=== PATIENT | female | born 1950 | race Caucasian/White ===

== ENCOUNTER 2019-12-01 09:26 | Outpatient (CLI) | payer MEDICARE, OTHER, SELFPAY ==
[2019-12-01 10:33] LABS: Add Urine Microscopic? YES; Alanine Aminotransferase 22 U/L (4-35); Albumin Level 4.3 g/dL (3.5-5.1); Alkaline Phosphatase 69 U/L (38-126); Appearance Urine Clear (Clear); Aspartate Amino Transferase 31 U/L (14-36); Bacteria Urine Trace /hpf; Bilirubin Urine Negative (Negative); Bilirubin,Total 0.8 mg/dL (0.2-1.3); Blood Urea Nitrogen 22 mg/dL (7-17); Blood Urine Negative (Negative); Calcium 9.2 mg/dL (8.4-10.2); Carbon Dioxide 28 mmol/L (22-30); Chloride 102 mmol/L (98-107); Cholesterol 128 mg/dL (0-200); Color Urine Yellow (Yellow); Estimated Glomerular Filt Rate > 60; Glucose 117 mg/dL (65-105); Glucose Urine UA Negative (Negative); HDL Direct 40 mg/dL; Ketones Urine Negative (Negative); Leukocyte Esterase Ur 1+ LEU/UL (NEGATIVE); Mucus Urine Rare /lpf; Nitrate Urine Negative (Negative); Potassium 4.3 mmol/L (3.4-5.0); Protein Urine Negative (Negative); RBC Urine 0-2 /hpf (0-2); Sodium 138 mmol/L (137-145); Specific Grav Ur 1.016 (1.001-1.035); Squamous Epithelial Cell Urine Occasional /hpf (Few); Triglycerides 139 mg/dL (<150); Urobilinogen Urine Negative mg/dL (<2.0); WBC Urine 0-3 /hpf (0-3)
[2019-12-01 10:35] LABS: Hemoglobin A1C 5.8 % (<5.7)
[2019-12-01 10:44] LABS: LDL Cholesterol Direct 59 mg/dL
[2019-12-01 11:02] LABS: Thyroid Stimulating Hormone 0.881 uIU/mL (0.465-4.680)
== END 2019-12-01 09:27 | disposition home or self-care (01) ==
LOC: ANHLAB 09:32
PROVIDERS: PCP Family Medicine; Visit Provider Physician Assistant
DX: F32.9 Major depressive disorder, single episode, unspecified (principal); I10 Essential (primary) hypertension; R73.01 Impaired fasting glucose
CPT/HCPCS: 36415; 80053; 80061; 81001; 83036; 84443

== ENCOUNTER 2020-05-21 06:59 | Outpatient (CLI) | payer MEDICARE, SELFPAY ==
[2020-05-21 07:35] LABS: Alanine Aminotransferase 23 U/L (4-35); Alkaline Phosphatase 71 U/L (38-126); Anion Gap 4 mmol/L (8-16); Aspartate Amino Transferase 30 U/L (14-36); Bilirubin,Total 0.6 mg/dL (0.2-1.3); Blood Urea Nitrogen 13 mg/dL (7-17); Carbon Dioxide 32 mmol/L (22-30); Chloride 102 mmol/L (98-107); Estimated Glomerular Filt Rate > 60; Glucose 120 mg/dL (65-105); Potassium 4.1 mmol/L (3.4-5.0); Sodium 138 mmol/L (137-145)
== END 2020-05-21 07:00 | disposition home or self-care (01) ==
PROVIDERS: PCP Family Medicine; Visit Provider Physician Assistant
DX: I10 Essential (primary) hypertension (principal)
CPT/HCPCS: 36415; 80053

== ENCOUNTER 2020-06-19 08:37 | Outpatient (CLI) | payer MEDICARE, SELFPAY ==
--- NOTE | ~2020-06-19 | MM_ITS ---
EXAMINATION: MM screening [facility] BI w darinel HISTORY: Screening mammogram TECHNIQUE: Craniocaudal and mediolateral oblique 3-D tomosynthesis images were obtained and synthetic 2-D images were generated. CAD analysis was submitted and interpreted. COMPARISON: 05/20/2019, 04/28/2018, 04/09/2017 BREAST PARENCHYMAL COMPOSITION: There are scattered areas of fibroglandular density. FINDINGS: RIGHT BREAST: An asymmetry is present in the subareolar aspect of the breast on the craniocaudal view . LEFT BREAST: There is no evidence of suspicious mass, calcification, or architectural distortion to s uggest malignancy. There has been no significant interval change. IMPRESSION: 1. Right breast asymmetry on the craniocaudal view. 2. Additional mammographic views and possible breast ultrasound are recommended. BI-RADS Category 0: Incomplete: Needs additional imaging evaluation. Reviewed, dictated and finalized at location A. TRANSPORT IMPRESSION: 1. Right breast asymmetry on the craniocaudal view. 2. Additional mammographic views and possible breast ultrasound are recommended . BI-RADS Category 0: Incomplete: Needs additional imaging evaluation.
== END 2020-06-19 08:38 | disposition home or self-care (01) ==
LOC: ANHIMG 08:44
PROVIDERS: PCP Family Medicine; Visit Provider Family Medicine
DX: Z12.31 Encounter for screening mammogram for malignant neoplasm of breast (principal); R92.8 Other abnormal and inconclusive findings on diagnostic imaging of breast
CPT/HCPCS: 77063; 77067

== ENCOUNTER 2020-07-16 12:01 | Outpatient (CLI) | payer MEDICARE, OTHER, SELFPAY ==
--- NOTE | ~2020-07-16 | MM_ITS ---
EXAMINATION: MM diagnostic mammo unilat RT HISTORY: Subareolar asymmetry of the right breast on screening mammogram TECHNIQUE: Additional 3-D tomosynthesis images of the right breast were performed and synthetic 2-D i mages were generated. CAD analysis was submitted and interpreted. COMPARISON: 06/19/2020, 05/20/2019, 04/28/2018, 04/09/2017 FINDINGS: No persistent asymmetry is identified with spot compression views of the right breast. Ther e is no suspicious mass or architectural distortion. Scattered benign-appearing calcifications are pr esent. IMPRESSION: 1. No mammographic evidence of malignancy. 2. Recommend routine screening mammography in one year. BI-RADS Category 2: Benign finding(s). Reviewed, dictated and finalized at location A. 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
== END 2020-07-16 12:02 | disposition home or self-care (01) ==
PROVIDERS: PCP Family Medicine; Visit Provider Family Medicine
DX: R92.8 Other abnormal and inconclusive findings on diagnostic imaging of breast (principal)
CPT/HCPCS: 77065

== ENCOUNTER 2020-08-09 09:07 | Outpatient (CLI) | payer MEDICARE, OTHER, SELFPAY ==
--- NOTE | ~2020-08-09 | DEXA_ITS ---
Bone Density Report Name: Octavia Ferreira Age: 69 Sex: Female Ethnicity: White Date of : 1950 Indication: osteopenia; height loss; hysterectomy; Referring Provider: INGRID MERRITT Study: Bone densitometry was performed. Exam Date: August 09, 2020 Accession number: [id number] Bone Density: Region BMD T-score Z-score Classification AP Spine (L1, L2, L3) 0.933 -0.8 1.1 Normal Femoral Neck (Left) 0.624 -2.0 -0.4 Osteopenia Total Hip (Left) 0.712 -1.9 -0.5 Osteopenia Total Hip Bilateral Avg 0.673 -2.2 -0.9 Osteopenia Femoral Neck (Right) 0.522 -2.9 -1.3 Osteoporosis Total Hip (Right) 0.633 -2.5 -1.2 Osteoporosis World Health Organization criteria for BMD impression classify patients as: Normal (T-score at or above -1.0), Osteopenia (T-score between -1.0 and -2.5), or Osteoporosis (T-score at or below -2.5). 10-year Fracture Risk: FRAX not reported because: Some T-score for Spine Total or Hip Total or Femoral Neck at or below -2.5 Previous Exams: Region Exam Age BMD T-score BMD Change BMD Change Date g/cm2 vs Baseline vs Previous AP Spine(L1, L2, L3) 08/09/2020 69 0.933 -0.8 -0.002(-0.2%)# 0.032(3.5%)* 04/28/2018 67 0.902 -1.1 -0.033(-3.5%)# -0.050(-5.2%)# 01/15/2012 61 0.951 -0.6 0.017(1.8%)# -0.056(-5.5%)# 12/11/2008 58 1.007 -0.1 0.072(7.7%)* 0.059(6.2%)* 12/07/2006 56 0.949 -0.6 0.014(1.5%) 0.014(1.5%) 12/02/2004 54 0.935 -0.8 Total Hip(Left) 08/09/2020 69 0.712 -1.9 -0.293(-29.1%) -0.077(-9.8%)* 04/28/2018 67 0.790 -1.2 -0.216(-21.5%) -0.145(-15.5%) 01/15/2012 61 0.934 -0.1 -0.071(-7.1%)# -0.018(-1.9%)# 12/11/2008 58 0.952 0.1 -0.053(-5.3%)* -0.017(-1.7%) 12/07/2006 56 0.969 0.2 -0.037(-3.6%)* -0.037(-3.6%)* 12/02/2004 54 1.005 0.5 Total Hip(Right) 08/09/2020 69 0.633 -2.5 -0.306(-32.6%) -0.074(-10.4%) 04/28/2018 67 0.707 -1.9 -0.233(-24.8%) -0.207(-22.7%) 01/15/2012 61 0.914 -0.2 -0.025(-2.7%)# -0.014(-1.5%)# 12/11/2008 58 0.928 -0.1 -0.012(-1.2%) 0.052(5.9%)* 12/07/2006 56 0.876 -0.5 -0.063(-6.7%)* -0.063(-6.7%)* 12/02/2004 54 0.940 0.0 *Denotes significance at 95% confidence level, LSC for AP Spine = 0.022 g/cm2, LSC for Total Hip = 0.027 g/cm2 Clinical Information Provided by Patient: Has used the following medications: Vitamin D, Calcium Has the following medical conditions: Hysterectomy Patient maximum height was 63 Menopause Age: 47 No regular weight bearing exercise
== END 2020-08-09 09:08 | disposition home or self-care (01) ==
PROVIDERS: PCP Family Medicine; Visit Provider Obstetrics & Gynecology
DX: Z78.0 Asymptomatic menopausal state (principal); M85.852 Other specified disorders of bone density and structure, left thigh; M85.851 Other specified disorders of bone density and structure, right thigh; M81.0 Age-related osteoporosis without current pathological fracture
CPT/HCPCS: 77080

== ENCOUNTER 2020-08-16 08:00 | Outpatient (CLI) | payer MEDICARE, OTHER, SELFPAY | END 2020-08-16 08:01 | disposition home or self-care (01) | PROVIDERS: PCP Family Medicine | DX: Z23 Encounter for immunization (principal) | CPT/HCPCS: 0001A; 91300 ==

== ENCOUNTER 2020-09-06 08:02 | Outpatient (CLI) | payer MEDICARE, OTHER, SELFPAY | END 2020-09-06 08:03 | disposition home or self-care (01) | LOC: ANHCOVIDVC 08:02 | PROVIDERS: PCP Family Medicine | DX: Z23 Encounter for immunization (principal) | CPT/HCPCS: 0002A; 91300 ==

== ENCOUNTER 2020-11-20 07:34 | Outpatient (CLI) | payer MEDICARE, OTHER, SELFPAY ==
[2020-11-20 08:02] LABS: Basophils Percent Auto 0.7 % (0.2-1.2); Eosinophils Absolute Auto 0.2 K/mm3 (0-0.3); Eosinophils Percent Auto 4.1 % (0-4.4); Hematocrit 41.9 % (37.0-47.0); Hemoglobin 13.4 g/dL (12.0-15.0); Immature Granulocyte Absolute 0.01 K/mm3 (0.00-0.031); Immature Granulocyte Percent A 0.2 % (0-0.5); Lymphocytes Absolute Auto 2.77 K/mm3 (0.9-3.2); Lymphocytes Percent Auto 47.4 % (18.3-44.2); Mean Corpuscular Hemoglobin 29.5 pg (26-34); Mean Corpuscular Volume 92.1 fl (80-100); Mean Platelet Volume 9.5 fl (7.4-10.4); Monocytes Absolute Auto 0.7 K/mm3 (0.1-0.6); Monocytes Percent Auto 11.6 % (2.6-8.5); Neutrophils Absolute Auto 2.1 K/mm3 (1.3-6.7); Platelet Count Result 215 k/mm3 (150-375); Red Blood Count 4.55 M/mm3 (4.2-5.4); Red Cell Distribution Width 12.3 % (11.5-14.5); White Blood Count 5.8 K/mm3 (4.5-10.0)
[2020-11-20 08:08] LABS: Alanine Aminotransferase 20 U/L (4-35); Albumin Level 4.2 g/dL (3.5-5.1); Alkaline Phosphatase 52 U/L (38-126); Anion Gap 8 mmol/L (8-16); Aspartate Amino Transferase 30 U/L (14-36); Bilirubin,Total 0.5 mg/dL (0.2-1.3); Blood Urea Nitrogen 12 mg/dL (7-17); Calcium 9.4 mg/dL (8.4-10.2); Carbon Dioxide 28 mmol/L (22-30); Chloride 106 mmol/L (98-107); Cholesterol 150 mg/dL (0-200); Estimated Glomerular Filt Rate > 60; Glucose 119 mg/dL (65-105); HDL Direct 56 mg/dL; Potassium 4.4 mmol/L (3.4-5.0); Sodium 142 mmol/L (137-145); Triglycerides 141 mg/dL (<150)
[2020-11-20 08:12] LABS: Add Urine Microscopic? YES; Appearance Urine Clear (Clear); Bilirubin Urine Negative (Negative); Blood Urine Negative (Negative); Color Urine Yellow (Yellow); Glucose Urine UA Negative (Negative); Ketones Urine Negative (Negative); Leukocyte Esterase Ur 2+ LEU/UL (NEGATIVE); Mucus Urine Rare /lpf; Nitrate Urine Negative (Negative); Protein Urine Negative (Negative); RBC Urine 0-2 /hpf (0-2); Squamous Epithelial Cell Urine Occasional /hpf (Few); Urobilinogen Urine Negative mg/dL (<2.0)
[2020-11-20 08:19] LABS: LDL Cholesterol Direct 56 mg/dL
[2020-11-20 08:38] LABS: Thyroid Stimulating Hormone 0.989 uIU/mL (0.465-4.680)
[2020-11-20 16:05] LABS: Hemoglobin A1C 5.5 % (<5.7)
== END 2020-11-20 07:35 | disposition home or self-care (01) ==
PROVIDERS: PCP Family Medicine; Visit Provider Nurse Practitioner Family
DX: R19.7 Diarrhea, unspecified (principal); K21.9 Gastro-esophageal reflux disease without esophagitis; I10 Essential (primary) hypertension; Z00.00 Encounter for general adult medical examination without abnormal findings; E78.2 Mixed hyperlipidemia
CPT/HCPCS: 36415; 80053; 80061; 81001; 83036; 84443; 85025

== ENCOUNTER 2020-12-24 10:44 | Outpatient (CLI) | payer MEDICARE, OTHER, SELFPAY ==
--- NOTE | ~2020-12-24 | XR_ITS ---
XR hand LT min 3V DATE: 12/24/2020 11:05 INDICATION: Trigger finger TECHNIQUE: AP, lateral, oblique views of the left hand COMPARISON: None FINDINGS: Diffuse osteopenia. Osteoarthritic changes are noted primarily at the interphalangeal joints and fifth metacarpophalangea l joint. Small erosion of the medial aspect of the ulnar styloid process. No other erosive change is evident. No fracture, dislocation, periosteal reaction or bone destruction. IMPRESSION: Osteopenia Mild degenerative changes Reviewed, dictated and finalized at location B.
== END 2020-12-24 10:45 | disposition home or self-care (01) ==
LOC: ANHIMG 10:46
PROVIDERS: PCP Family Medicine; Visit Provider Plastic Surgery
DX: M19.042 Primary osteoarthritis, left hand (principal); M85.842 Other specified disorders of bone density and structure, left hand
CPT/HCPCS: 73130

== ENCOUNTER → 2021-03-19 03:04 | Outpatient (CLI) | payer MEDICARE, OTHER, SELFPAY ==
[2021-03-19 19:14] LABS: SARS-CoV-2 RNA PCR Negative
== END ==
PROVIDERS: PCP Family Medicine; Visit Provider Nurse Practitioner Family
DX: R05.9 Cough, unspecified (principal); Z20.822 Contact with and (suspected) exposure to COVID-19
CPT/HCPCS: C9803; U0003; U0005

== ENCOUNTER 2021-03-20 13:35 | Outpatient (CLI) | payer MEDICARE, OTHER, SELFPAY ==
[2021-03-20 14:35] LABS: Alanine Aminotransferase 20 U/L (4-35); Albumin Level 4.6 g/dL (3.5-5.1); Alkaline Phosphatase 65 U/L (38-126); Anion Gap 7 mmol/L (8-16); Aspartate Amino Transferase 34 U/L (14-36); Bilirubin,Total 0.6 mg/dL (0.2-1.3); Blood Urea Nitrogen 10 mg/dL (7-17); Calcium 9.2 mg/dL (8.4-10.2); Carbon Dioxide 31 mmol/L (22-30); Chloride 101 mmol/L (98-107); Estimated Glomerular Filt Rate > 60; Glucose 102 mg/dL (65-110); Potassium 4.1 mmol/L (3.4-5.0); Sodium 139 mmol/L (137-145)
[2021-03-20 17:39] LABS: Hemoglobin A1C 5.4 % (<5.7)
== END 2021-03-20 13:36 | disposition home or self-care (01) ==
PROVIDERS: PCP Family Medicine; Visit Provider Physician Assistant
DX: R73.01 Impaired fasting glucose (principal); I10 Essential (primary) hypertension
CPT/HCPCS: 36415; 80053; 83036

== ENCOUNTER 2021-03-22 11:35 | Outpatient (CLI) | payer MEDICARE, OTHER, SELFPAY ==
--- NOTE | ~2021-03-22 | XR_ITS ---
XR chest 2V DATE: 03/22/2021 11:48 INDICATION: Congestion, productive cough TECHNIQUE: PA and lateral views COMPARISON: 04/21/2018 two-view chest FINDINGS: Normal heart size. Mild aortic tortuosity. No hilar or mediastinal enlargement. No pulmonary infiltrate or consolidation, pleural effusion or pulmonary vascular congestion or pneumo thorax. Diffuse osteopenia. Mild scoliosis of the thoracic spine, degenerative spurring of the thoracic spine . Right glenohumeral joint replacement. IMPRESSION: No active cardiopulmonary disease Reviewed, dictated and finalized at location A.
== END 2021-03-22 11:36 | disposition home or self-care (01) ==
PROVIDERS: PCP Family Medicine; Visit Provider Nurse Practitioner Family
DX: R05.9 Cough, unspecified (principal)
CPT/HCPCS: 71046

== ENCOUNTER 2021-04-22 14:06 | Outpatient (CLI) | payer MEDICARE, OTHER, SELFPAY ==
--- NOTE | ~2021-04-22 | XR_ITS ---
EXAMINATION: XR chest 2V 04/22/2021 14:25 INDICATION: Unspecified cough. PROCEDURE: 2 view chest COMPARISON: Comparison to multiple prior studies sequentially, with oldest reviewed study dated 05/16. FINDINGS: The lungs are clear. The cardiomediastinal silhouette is within normal limits. There are no pleural effusions. There is no pneumothorax suspected. There is a right shoulder arthroplasty. IMPRESSION: 1: NO ACUTE CARDIOPULMONARY DISEASE. Reviewed, dictated and finalized at location A. 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
== END 2021-04-22 14:07 | disposition home or self-care (01) ==
LOC: ANHIMG 14:12
PROVIDERS: PCP Family Medicine; Visit Provider Nurse Practitioner Family
DX: R05.9 Cough, unspecified (principal)
CPT/HCPCS: 71046

== ENCOUNTER 2021-06-13 08:35 | Outpatient (CLI) | payer MEDICARE, OTHER, SELFPAY ==
[2021-06-13 09:41] LABS: Vitamin D 25 Hydroxy 58.7 ng/mL
== END 2021-06-13 08:36 | disposition home or self-care (01) ==
LOC: ANHLAB 08:38
PROVIDERS: PCP Family Medicine; Visit Provider Obstetrics & Gynecology
DX: E55.9 Vitamin D deficiency, unspecified (principal)
CPT/HCPCS: 36415; 82306

== ENCOUNTER 2021-07-21 09:51 | Emergency (ER) | payer MEDICARE, OTHER, SELFPAY ==
[2021-07-21 09:59] VITALS: BP 130/62; PULSE 83; RESP 16; TEMP 36.6; O2SAT 98
[2021-07-21 10:06] VITALS: BP 130/62; PULSE 83; RESP 16; TEMP 36.6; O2SAT 98
--- NOTE | 2021-07-21 10:39 | ED.GENADULT ---
HPI - General Adult General Chief complaint: Dental/Oral Stated complaint: sore throat and tongue Source: patient Mode of arrival: ambulatory Limitations: no limitations History of Present Illness HPI narrative: Patient presents for evaluation of sore throat and white plaque to the tongue since yesterday. No recent sick contacts. No difficulty breathing or swallowing. No otalgia, respiratory symptoms, fever, chills. She has not tried any therapies to assist with her symptoms. She does not smoke. No hx of similar symptoms. She does have an albuterol inhaler at home but has not used it recently. She is not immunocompromised to her knowledge. She is not diabetic. No additional complaints or concerns. Related Data Home Medications Medication Instructions Recorded Confirmed lamotrigine 100 mg tablet 100 mg PO DAILY 07/15/19 07/21/21 buspirone 5 mg tablet 5 mg PO TID 07/09/20 07/21/21 trazodone 100 mg tablet 50 mg PO BID 07/09/20 07/21/21 vortioxetine 20 mg tablet 20 mg PO DAILY 07/09/20 07/21/21 zolpidem 10 mg tablet 10 mg PO HS PRN 07/09/20 07/21/21 escitalopram oxalate [Lexapro] 20 mg PO DAILY 07/21/21 07/21/21 gabapentin 300 mg PO BID 07/21/21 07/21/21 sumatriptan succinate See Rx Instructions .ROUTE 07/21/21 07/21/21 .COMPLEX PRN valacyclovir [Valtrex] 1,000 mg PO DAILY PRN 07/21/21 07/21/21 Allergies Allergy/AdvReac Type Severity Reaction Status Date / Time hydrocodone AdvReac Mild HALLUCINATI Verified 07/21/21 10:01 ONS Review of Systems Review of Systems: CONSTITUTIONAL: Denies fever, chills, or sweats. EYES: Denies visual changes, redness, or discharge. ENT: Reports sore throat and white plaque to tongue. Denies rhinorrhea, congestion, or otalgia CARDIOVASCULAR: Denies chest pain, palpitations, or edema. RESPIRATORY: Denies cough or dyspnea. GASTROINTESTINAL: Denies abdominal pain, nausea, vomiting, or diarrhea. GENITOURINARY: Denies dysuria or hematuria. SKIN: Denies rash or itching. MUSCULOSKELETAL: Denies back pain, joint pain, or myalgia. NEUROLOGIC: Denies headache, numbness, dizziness, or weakness. PSYCHIATRIC: Denies anxiety or depression. [facility] Past Medical History Medical History Allergic rhinitis Chronic insomnia Dizziness MARILY (generalized anxiety disorder) GERD (gastroesophageal reflux disease) History of sterilization procedure HTN (hypertension) MDD (major depressive disorder), recurrent, severe, with psychosis YOLANDA (obstructive sleep apnea) Pure hypercholesterolemia Recurrent cold sores Right knee pain Right shoulder pain RLS (restless legs syndrome) Sore in nose Wellness examination Surgical History Surgical History History of hysterectomy S/P trigger finger release 09/04/20; left 3rd digit Family History Family History Mother Hypertension, Onset Age: 60 Patient's mother is Family history of congestive heart failure, Onset Age: 64 Grandparent Carcinoma of colon, Onset Age: 64 Father Hypertension, Onset Age: 63 Patient's father is Carcinoma of colon, Onset Age: 65 Family history of malignant neoplasm of bone Sibling Hypertension Other Diabetes mellitus Family history of coronary artery disease Social History Social History Smoking status: Never smoker Second hand tobacco smoke exposure: No Alcohol intake: never Substance use: current Substance use type: marijuana Living arrangements: alone Gender identity (if verbalized by the patient): Female Sexual Orientation (if Verbalized by the Patient): Straight or Heterosexual Spiritual care concerns: No Exam Narrative: GENERAL: Well-appearing, well-nourished, and in no acute distress. HEAD: Normocephalic, a
== END 2021-07-21 10:45 | disposition home or self-care (01) ==
PROVIDERS: Emergency Provider Nurse Practitioner; PCP Family Medicine
DX: B37.9 Candidiasis, unspecified (principal); K21.9 Gastro-esophageal reflux disease without esophagitis; I10 Essential (primary) hypertension; G47.33 Obstructive sleep apnea (adult) (pediatric); E78.00 Pure hypercholesterolemia, unspecified; G25.81 Restless legs syndrome; F41.1 Generalized anxiety disorder; F33.3 Major depressive disorder, recurrent, severe with psychotic symptoms
CPT/HCPCS: 87081; 99213; G0463

== ENCOUNTER 2021-07-26 13:47 | Outpatient (CLI) | payer MEDICARE, OTHER, SELFPAY ==
--- NOTE | ~2021-07-26 | XR_ITS ---
XR chest 2V DATE: 07/26/2021 14:08 INDICATION: Chronic cough for one year. Nonsmoker. TECHNIQUE: PA and lateral views COMPARISON: 04/22/2021 PA and lateral chest FINDINGS: Normal heart size. Mild aortic tortuosity. No hilar or mediastinal enlargement. No pulmonar y infiltrate or consolidation, pleural effusion or pulmonary vascular congestion or pneumothorax. Mild elevation of the right leaf of the diaphragm. Status post right glenohumeral joint replacement. Mild scoliosis, degenerative spurring of thoracic spine IMPRESSION: No active cardiopulmonary disease or significant change since 04/22/2021 Reviewed, dictated and finalized at location A. 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
== END 2021-07-26 13:48 | disposition home or self-care (01) ==
LOC: ANHIMG 13:54
PROVIDERS: PCP Family Medicine; Visit Provider Physician Assistant
DX: R05.3 Chronic cough (principal)
CPT/HCPCS: 71046

== ENCOUNTER 2021-11-05 07:52 | Outpatient (CLI) | payer MEDICARE, OTHER, SELFPAY ==
[2021-11-05 08:26] LABS: Basophils Percent Auto 0.6 % (0.2-1.2); Eosinophils Absolute Auto 0.2 K/mm3 (0-0.3); Eosinophils Percent Auto 3.3 % (0-4.4); Hematocrit 41.5 % (37.0-47.0); Hemoglobin 13.3 g/dL (12.0-15.0); Immature Granulocyte Absolute 0.01 K/mm3 (0.00-0.031); Immature Granulocyte Percent A 0.2 % (0-0.5); Lymphocytes Absolute Auto 2.07 K/mm3 (0.9-3.2); Lymphocytes Percent Auto 42.7 % (18.3-44.2); Mean Corpuscular Hemoglobin 29.5 pg (26-34); Mean Platelet Volume 9.1 fl (7.4-10.4); Monocytes Absolute Auto 0.7 K/mm3 (0.1-0.6); Monocytes Percent Auto 14.6 % (2.6-8.5); Neutrophils Absolute Auto 1.9 K/mm3 (1.3-6.7); Neutrophils Percent Auto 38.6 % (45.5-73.1); Platelet Count Result 192 k/mm3 (150-375); Red Blood Count 4.51 M/mm3 (4.2-5.4); Red Cell Distribution Width 12.5 % (11.5-14.5); White Blood Count 4.9 K/mm3 (4.5-10.0)
[2021-11-05 08:28] LABS: Appearance Urine Slightly Cloudy (Clear); Bilirubin Urine Negative (Negative); Blood Urine Negative (Negative); Color Urine Yellow (Yellow); Glucose Urine UA Negative (Negative); Ketones Urine Negative (Negative); Leukocyte Esterase Ur 1+ LEU/UL (NEGATIVE); Nitrate Urine Negative (Negative); Protein Urine Negative (Negative); Specific Grav Ur >= 1.030 (1.001-1.035); Urobilinogen Urine 0.2 mg/dL (<2.0)
[2021-11-05 08:37] LABS: Alanine Aminotransferase 18 U/L (6-35); Albumin Level 3.9 g/dL (3.5-5.1); Alkaline Phosphatase 64 U/L (38-126); Anion Gap 5 mmol/L (8-16); Aspartate Amino Transferase 26 U/L (14-36); Bilirubin,Total 0.4 mg/dL (0.2-1.3); Blood Urea Nitrogen 12 mg/dL (7-17); Calcium 8.5 mg/dL (8.4-10.2); Carbon Dioxide 34 mmol/L (22-30); Chloride 103 mmol/L (98-107); Cholesterol 140 mg/dL (0-200); Estimated Glomerular Filt Rate > 60; Glucose 112 mg/dL (65-110); HDL Direct 40 mg/dL; Sodium 142 mmol/L (137-145); Triglycerides 109 mg/dL (<150)
[2021-11-05 08:39] LABS: Bacteria Urine Trace /hpf; Mucus Urine Rare /lpf; RBC Urine 0-2 /hpf (0-2); Squamous Epithelial Cell Urine Rare /hpf (Few)
[2021-11-05 08:40] LABS: Add Urine Microscopic? YES
[2021-11-05 08:49] LABS: LDL Cholesterol Direct 61 mg/dL
== END 2021-11-05 07:53 | disposition home or self-care (01) ==
LOC: ANHLAB 07:54
PROVIDERS: PCP Family Medicine; Visit Provider Physician Assistant
DX: G47.33 Obstructive sleep apnea (adult) (pediatric) (principal); K21.9 Gastro-esophageal reflux disease without esophagitis; F32.9 Major depressive disorder, single episode, unspecified; F41.1 Generalized anxiety disorder; I10 Essential (primary) hypertension; E78.00 Pure hypercholesterolemia, unspecified
CPT/HCPCS: 36415; 80053; 80061; 81001; 84443; 85025

== ENCOUNTER 2021-11-07 07:57 | Outpatient (CLI) | payer MEDICARE, OTHER, SELFPAY ==
--- NOTE | ~2021-11-07 | XR_ITS ---
EXAMINATION: XR shoulder RT min 2V DATE: 11/07/2021 08:20 INDICATION: Right shoulder pain. TECHNIQUE: 4 views of right shoulder were obtained. COMPARISON: Right shoulder radiographs 07/06/2018 FINDINGS: There is a reverse [id number] total right shoulder arthroplasty in near-anatomic align ment. No periprosthetic lucency to suggest loosening or infection. No fracture. There is mild osteoar thritis of acromioclavicular joint. IMPRESSION: 1. Total right shoulder arthroplasty in near-anatomic alignment. 2. Mild osteoarthritis of acromioclavicular joint. Reviewed, dictated and finalized at location A.
== END 2021-11-07 07:58 | disposition home or self-care (01) ==
PROVIDERS: PCP Family Medicine; Visit Provider Physician Assistant
DX: M19.011 Primary osteoarthritis, right shoulder (principal)
CPT/HCPCS: 73030

== ENCOUNTER 2021-12-10 12:50 | Outpatient (CLI) | payer MEDICARE, OTHER, SELFPAY ==
--- NOTE | 2021-12-11 07:08 | WPDPFTINT ---
PFT Procedure Performed PFT Procedure Performed Spirometry with Pre/Post Bronchodilator Plethysmography (Lung Vol) Flow Vol Loop PFT Interpretation This is a pulmonary function test with pre and post-bronchodilator spirometry, plethysmography and diffusing capacity. The test was performed and results interpreted in accordance with the 2019 and 2005 ATS/ERS Task Force guidelines respectively using the Global Lung Function Initiative-2012 reference equations. Patient demonstrated good effort and cooperation. Reproducibility criteria were met. The quality of the pre bronchodilator spirometry maneuver was Grade B and post bronchodilator spirometry maneuver was Grade B. of note the patient was unable to complete the DLCO maneuvers after multiple attempts. Findings: Spirometry: The contour the inspiratory and expiratory flow tracing are normal. The pre bronchodilator FVC is 3.13 L, 118% predicted. The pre bronchodilator FEV1 is 2.52 L, 121% predicted. The pre bronchodilator FEV1: FVC ratio was 81%. The post bronchodilator FVC is 3.17 L, representing 1% increase. The post bronchodilator FEV1 is 2.67 L, representing a 6% increase. The post bronchodilator FEV1: FVC ratio was 84%. Plethysmography: The total lung capacity is 5.20 L, 110% predicted. Functional residual capacity is 2.68 L, 100% predicted. The residual volume is 2.07 L, 100% predicted. Impression: The spirometry is normal without evidence of an obstructive abnormality. There is no significant improvement after inhaling a single dose of albuterol. The lung volumes are normal. There are no prior studies for comparison
== END 2021-12-10 12:51 | disposition home or self-care (01) ==
PROVIDERS: PCP Family Medicine; Visit Provider Physician Assistant
DX: R05.3 Chronic cough (principal); R06.02 Shortness of breath
CPT/HCPCS: 94060; 94726

== ENCOUNTER → 2021-12-17 12:17 | Outpatient (CLI) | payer SELFPAY ==
--- NOTE | ~2021-12-17 | CT_ITS ---
This report was recreated 01/20/2022. Original report was signed by Perry Garcia MD on 022. EXAMINATION: CT diagnostic chest w con DATE: 12/18/2021 10:55 INDICATION: Chronic cough TECHNIQUE: Transaxial computed tomographic images of the chest were obtained after the administration of 75 cc of Omnipaque 350 intravenous contrast. The dose-length product (DLP) was 183.73 mGy-cm. Ite rative reconstruction was used. COMPARISON: None FINDINGS: There is mild atelectasis. The lungs are free of focal airspace opacities. No pleural effus ion or pneumothorax. No pathologically enlarged thoracic lymph nodes are identified. The heart size i s normal. There is moderate thoracic spondylosis. There are partially imaged changes of right total s houlder arthroplasty. IMPRESSION: 1. No CT correlate for the patient's symptoms. Reviewed, dictated and finalized at location B. Dictated By: Perry Garcia MD 12/18/21 1538 Signed By: <Electronically signed by Perry Garcia MD in OV> 12/18/21 1545 Reviewed, dictated and finalized at location B.
--- NOTE | ~2021-12-17 | CT_ITS ---
EXAMINATION: CT diagnostic chest w con DATE: 12/18/2021 10:55 INDICATION: Chronic cough TECHNIQUE: Transaxial computed tomographic images of the chest were obtained after the administration of 75 cc of Omnipaque 350 intravenous contrast. The dose-length product (DLP) was 183.73 mGy-cm. Ite rative reconstruction was used. COMPARISON: None FINDINGS: There is mild atelectasis. The lungs are free of focal airspace opacities. No pleural effus ion or pneumothorax. No pathologically enlarged thoracic lymph nodes are identified. The heart size i s normal. There is moderate thoracic spondylosis. There are partially imaged changes of right total s houlder arthroplasty. IMPRESSION: 1. No CT correlate for the patient's symptoms. Reviewed, dictated and finalized at location B.
[2022-01-07 10:39] LABS: Estimated Glomerular Filt Rate > 60
== END ==
PROVIDERS: PCP Family Medicine; Visit Provider Family Medicine
DX: R05.3 Chronic cough (principal)
CPT/HCPCS: 99199; 36415; 71260; 82565; Q9967

== ENCOUNTER 2021-12-19 09:24 | Outpatient (CLI) | payer MEDICARE, OTHER, SELFPAY ==
--- NOTE | ~2021-12-19 | MM_ITS ---
EXAMINATION: MM screening [facility] BI w darinel HISTORY: Screening TECHNIQUE: Craniocaudal and mediolateral oblique 3-D tomosynthesis images were obtained and synthetic 2-D images were generated. CAD analysis was submitted and interpreted. COMPARISON: Comparison to multiple prior studies sequentially, with oldest reviewed study dated 03/16. BREAST PARENCHYMAL COMPOSITION: Breast composed of scattered areas of fibroglandular density FINDINGS: There is no evidence of suspicious mass, calcification, or architectural distortion to sugg est malignancy in either breast. There has been no suspicious interval change. IMPRESSION: 1. No mammographic evidence of malignancy. 2. Recommend routine screening mammography in one year. 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
== END 2021-12-19 09:25 | disposition home or self-care (01) ==
PROVIDERS: PCP Family Medicine; Visit Provider Family Medicine
DX: Z12.31 Encounter for screening mammogram for malignant neoplasm of breast (principal)
CPT/HCPCS: 77063; 77067

== ENCOUNTER 2022-05-13 10:39 | Outpatient (CLI) | payer MEDICARE, OTHER, SELFPAY ==
--- NOTE | ~2022-05-13 | XR_ITS ---
XR hip RT min 3V w AP pelvis DATE: 05/13/2022 11:09 INDICATION: Right hip pain TECHNIQUE: AP pelvis. AP, lateral and crosstable lateral views of right hip COMPARISON: July 28, 2017 right hip FINDINGS: There is severe degenerative disc disease at L3-4, L4-5 and L5-S1. Pubic symphysis and sacroiliac joints are intact. No pelvic fracture or bone destruction. No fracture, dislocation, avascular necrosis or bone destruction of the right hip. Right hip joint sp keyla appears relatively preserved. IMPRESSION: No significant abnormality of right hip Severe degenerative disc disease at L3-4, L4-5 and L5-S1 Reviewed, dictated and finalized at location B. 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
== END 2022-05-13 10:40 | disposition home or self-care (01) ==
PROVIDERS: PCP Family Medicine; Visit Provider Physician Assistant
DX: M51.36 Other intervertebral disc degeneration, lumbar region (principal); M51.37 Other intervertebral disc degeneration, lumbosacral region
CPT/HCPCS: 73502

== ENCOUNTER 2022-06-24 08:33 | Outpatient (CLI) | payer MEDICARE, OTHER, SELFPAY ==
[2022-06-24 08:55] LABS: Add Urine Microscopic? YES; Appearance Urine Clear (Clear); Basophils Percent Auto 0.5 % (0.2-1.2); Bilirubin Urine Negative (Negative); Blood Urine Negative (Negative); Color Urine Yellow (Yellow); Eosinophils Absolute Auto 0.2 K/mm3 (0-0.3); Eosinophils Percent Auto 3.1 % (0-4.4); Glucose Urine UA Negative (Negative); Hematocrit 42.8 % (37.0-47.0); Hemoglobin 13.9 g/dL (12.0-15.0); Immature Granulocyte Absolute 0.01 K/mm3 (0.00-0.031); Immature Granulocyte Percent A 0.2 % (0-0.5); Ketones Urine Negative (Negative); Leukocyte Esterase Ur 1+ LEU/UL (NEGATIVE); Lymphocytes Absolute Auto 2.58 K/mm3 (0.9-3.2); Lymphocytes Percent Auto 44.1 % (18.3-44.2); Mean Corpuscular HGB Conc 32.5 g/dl (32-36); Mean Corpuscular Hemoglobin 28.8 pg (26-34); Mean Corpuscular Volume 88.6 fl (80-100); Mean Platelet Volume 9.2 fl (7.4-10.4); Monocytes Absolute Auto 0.6 K/mm3 (0.1-0.6); Monocytes Percent Auto 10.1 % (2.6-8.5); Neutrophils Absolute Auto 2.5 K/mm3 (1.3-6.7); Nitrate Urine Negative (Negative); Platelet Count Result 234 k/mm3 (150-375); Protein Urine Negative (Negative); Red Blood Count 4.83 M/mm3 (4.2-5.4); Red Cell Distribution Width 12.9 % (11.5-14.5); Urobilinogen Urine 0.2 mg/dL (<2.0); White Blood Count 5.9 K/mm3 (4.5-10.0); pH Urine 6.5 (5.0-9.0)
[2022-06-24 08:59] LABS: Hemoglobin A1C 5.5 % (<5.7)
[2022-06-24 09:04] LABS: Alanine Aminotransferase 23 U/L (6-35); Albumin Level 4.3 g/dL (3.5-5.1); Alkaline Phosphatase 61 U/L (38-126); Anion Gap 5 mmol/L (8-16); Aspartate Amino Transferase 29 U/L (14-36); Bilirubin,Total 0.5 mg/dL (0.2-1.3); Blood Urea Nitrogen 13 mg/dL (7-17); Calcium 8.7 mg/dL (8.4-10.2); Carbon Dioxide 34 mmol/L (22-30); Chloride 101 mmol/L (98-107); Cholesterol 184 mg/dL (0-200); Estimated Glomerular Filt Rate > 60; Glucose 117 mg/dL (65-110); HDL Direct 60 mg/dL; Potassium 4.1 mmol/L (3.4-5.0); Sodium 140 mmol/L (137-145); Triglycerides 100 mg/dL (<150)
[2022-06-24 09:16] LABS: LDL Cholesterol Direct 87 mg/dL
[2022-06-24 09:51] LABS: RBC Urine 0-2 /hpf (0-2); Squamous Epithelial Cell Urine Rare /hpf (Few)
== END 2022-06-24 08:34 | disposition home or self-care (01) ==
LOC: ANHLAB 08:35
PROVIDERS: PCP Family Medicine; Visit Provider Physician Assistant
DX: E78.00 Pure hypercholesterolemia, unspecified (principal); G47.33 Obstructive sleep apnea (adult) (pediatric); I10 Essential (primary) hypertension; R42 Dizziness and giddiness; R73.01 Impaired fasting glucose
CPT/HCPCS: 36415; 80053; 80061; 81001; 83036; 84443; 85025

== ENCOUNTER 2022-08-05 15:41 | Emergency (ER) | payer MEDICARE, OTHER, SELFPAY ==
[2022-08-05 15:56] VITALS: BP 154/95; PULSE 73; RESP 16; TEMP 37.2; O2SAT 100
[2022-08-05 19:12] VITALS: BP 163/96; PULSE 69; RESP 18; O2SAT 99
--- NOTE | 2022-08-05 19:29 | ED.RECABL ---
HPI - Recheck/Abnormal Lab/Rx General Chief Complaint: Recheck/Abnormal Lab/Rx Stated Complaint: ELEVATED BP Time Seen by Provider: 08/05/22 19:28 Source: patient Mode of arrival: ambulatory Limitations: no limitations History of Present Illness HPI narrative: Patient is 71 years old white female was seen in her family physician today for regular checkup and her blood pressure was elevated was told by her family physician to keep an eye on it. Patient went home and kept checking her blood pressure every half an hour, and is going higher and higher. Came to the emergency room, denies any fever chills nausea vomiting headache shortness of breath or chest pain. Patient is anxious Related Data Home Medications Medication Instructions Recorded Confirmed lamotrigine 100 mg tablet 100 mg PO DAILY 07/15/19 08/05/22 (Lamictal) buspirone 5 mg tablet 5 mg PO TID 07/09/20 08/05/22 escitalopram oxalate 20 mg tablet 20 mg PO DAILY 07/21/21 08/05/22 (Lexapro) trazodone 100 mg tablet 100 mg PO DAILY 12/10/21 08/05/22 Allergies Allergy/AdvReac Type Severity Reaction Status Date / Time hydrocodone AdvReac Mild HALLUCINATI Verified 08/05/22 08:01 ONS Review of Systems Review of Systems: All systems reviewed & are unremarkable except as noted in HPI and below PMFSH Past Medical History Medical History Allergic rhinitis Chronic insomnia Dizziness MARILY (generalized anxiety disorder) GERD (gastroesophageal reflux disease) History of sterilization procedure HTN (hypertension) MDD (major depressive disorder), recurrent, severe, with psychosis YOLANDA (obstructive sleep apnea) Pure hypercholesterolemia Recurrent cold sores Right knee pain Right shoulder pain Sore in nose Wellness examination Surgical History Surgical History History of hysterectomy S/P trigger finger release 09/04/20; left 3rd digit Family History Family History Mother Hypertension, Onset Age: 60 Patient's mother is Family history of congestive heart failure, Onset Age: 64 Grandparent Carcinoma of colon, Onset Age: 64 Father Hypertension, Onset Age: 63 Patient's father is Carcinoma of colon, Onset Age: 65 Family history of malignant neoplasm of bone Sibling Hypertension Other Diabetes mellitus Family history of coronary artery disease Social History Social History Smoking status: Never smoker Second hand tobacco smoke exposure: No Alcohol intake: never Substance use: current Substance use type: marijuana Living arrangements: alone Occupation/Education: retired Gender identity (if verbalized by the patient): Female Sexual Orientation (if Verbalized by the Patient): Straight or Heterosexual Spiritual care concerns: No Exam Narrative: General appearance: Well-developed, well-nourished Skin: Normal color Head: Normocephalic, nontraumatic Eyes: Clear conjunctiva ENT: Oropharynx normal, ears normal, nose normal Neck: Supple, nontender Chest and respiratory: Airway patent, no respiratory distress, no accessory muscle use Heart: Regular rate/rhythm Abdomen: Soft, nontender, no organomegaly, quiet bowel sounds Vascular: Normal peripheral pulses, normal capillary refill. 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
[2022-08-05] MEDS: cloNIDine HCL 0.1 MG TABLET PO (19:35)
[2022-08-05] MEDS: LORazepam (*CRX) 0.5 MG TABLET 1 MG PO (19:35)
[2022-08-05 20:07] VITALS: BP 158/80; PULSE 62; RESP 16; O2SAT 98
--- NOTE | 2022-08-05 20:08 | PC.NURSE ---
Pt reports incidental finding of elevated blood pressure while she was at her doctor's office today for her back issues. She has a history of HTN and takes amlodipine 10mg and losartan 50mg. States I've missed a few doses here and there . She c/o headache and dizziness. Denies chest pain or SOB or vision changes.
[2022-08-05 20:47] VITALS: BP 160/80; PULSE 76; RESP 18; O2SAT 98
== END 2022-08-05 20:48 | disposition home or self-care (01) ==
PROVIDERS: Emergency Provider Emergency Medicine; PCP Family Medicine
DX: I10 Essential (primary) hypertension (principal); F41.1 Generalized anxiety disorder; E78.00 Pure hypercholesterolemia, unspecified; K21.9 Gastro-esophageal reflux disease without esophagitis; G47.33 Obstructive sleep apnea (adult) (pediatric); F33.3 Major depressive disorder, recurrent, severe with psychotic symptoms; Z90.710 Acquired absence of both cervix and uterus
CPT/HCPCS: 99283; A9270

== ENCOUNTER → 2022-08-13 10:30 | Outpatient (CLI) | payer MEDICARE, SELFPAY ==
--- NOTE | ~2022-08-13 | MR_ITS ---
MRI of the lumbar spine Clinical History: Back pain Technique: Axial T2-weighted images, and sagittal T1-weighted, T2-weighted, and T2 fat-sat images wer e acquired. COMPARISON: 03/27/2017 Findings: There is no fracture of the lumbar spine. 4-5 mm anterolisthesis of L3 over L4 noted. There are reactive marrow signal changes due to degenerative disc disease, particularly about the L3-L4 an d L4-L5 disc spaces. At L1-L2, there is minimal disc bulge. There is facet arthropathy. No spinal canal stenosis or neural foraminal narrowing. At L2-L3, there is diffuse disc bulge and facet arthropathy, with minimal central canal stenosis. Karel ateral neural foramina are preserved. At L3-L4, disc bulge and facet arthropathy result in severe spinal canal stenosis/thecal sac compress ion. There is moderate to severe left neural foraminal narrowing and mild right neural foraminal narr owing. At L4-L5, disc bulge and facet arthropathy result in moderate central canal stenosis with severe late ral recess stenosis bilaterally. There is severe right neural foraminal narrowing and moderate to sev ere left neural foraminal narrowing. At L5-S1, disc bulge and facet arthropathy are present. There is moderate right neural foraminal narr owing and mild to moderate left neural foraminal narrowing. No loli central canal stenosis. Paravertebral soft tissues are unremarkable. Impression: Moderate to advanced degenerative spondylosis, as detailed above, worst at L3-L4 and L4-L5. 4-5 mm anterolisthesis of L3 over L4. Reviewed, dictated and finalized at [facility]. 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 4-5 mm anterolisthesis of L3 over L4.
== END ==
PROVIDERS: PCP Family Medicine; Visit Provider Physician Assistant
DX: M47.896 Other spondylosis, lumbar region (principal)
CPT/HCPCS: 72148

== ENCOUNTER 2022-08-16 08:20 | Outpatient (CLI) | payer MEDICARE, OTHER, SELFPAY ==
--- NOTE | ~2022-08-16 | DEXA_ITS ---
Bone Density Report Name: ALEXI JONES Age: 71 Sex: Female Ethnicity: White Date of : 1950 Indication: postmenopausal; screening for osteoporosis; hysterectomy; Referring Provider: FERDI GAYTAN Study: Bone densitometry was performed. Exam Date: August 16, 2022 Accession number: [id number] Bone Density: Region BMD T-score Z-score Classification AP Spine(L1-L4) 0.963 -0.8 1.3 Normal Femoral Neck (Left) 0.676 -1.6 0.2 Osteopenia Total Hip (Left) 0.760 -1.5 0.0 Osteopenia Femoral Neck (Right) 0.646 -1.8 0.0 Osteopenia Total Hip (Right) 0.637 -2.5 -1.0 Osteoporosis Total Hip Mean 0.698 -2.0 -0.5 Osteopenia World Health Organization criteria for BMD impression classify patients as: Normal (T-score at or above -1.0), Osteopenia (T-score between -1.0 and -2.5), or Osteoporosis (T-score at or below -2.5). 10-year Fracture Risk: FRAX not reported because: Some T-score for Spine Total or Hip Total or Femoral Neck at or below -2.5 Treated for osteoporosis Clinical Information Provided by Patient: Is being treated for osteoporosis Has used the following medications: Vitamin D, Calcium Has the following medical conditions: Hysterectomy Patient maximum height was 62 Menopause Age: 47 No regular weight bearing exercise Drinks caffeinated beverages Onset of menses at age 18 Number of children 1 Impression: The patient has osteoporosis, based on the Right Total Hip T-score. Discussion: It is important to ask patients whether they are taking their medications and to encourage continued and appropriate compliance with their osteoporosis therapies to reduce fracture risk. It is also important to review their risk factors and encourage appropriate calcium and vitamin D intakes, exercise, fall prevention and other lifestyle measures. Follow-Up: Consider a repeat BMD and Vertebral Fracture Assessment (VFA) exam in 2 years or sooner if medically necessary, to reassess this patient's status. Reported by: [facility] on 08/16/2022 8:48:00 AM. Reviewed, dictated and finalized at location AMeli MOHAN
== END 2022-08-16 08:21 | disposition home or self-care (01) ==
LOC: ANHIMG 08:21
PROVIDERS: PCP Family Medicine; Visit Provider Physician Assistant
DX: M81.0 Age-related osteoporosis without current pathological fracture (principal); M85.852 Other specified disorders of bone density and structure, left thigh; M85.851 Other specified disorders of bone density and structure, right thigh
CPT/HCPCS: 77080

== ENCOUNTER 2022-10-01 08:55 | Outpatient (CLI) | payer MEDICARE, OTHER, SELFPAY ==
[2022-10-01 09:23] LABS: Alanine Aminotransferase 32 U/L (6-35); Albumin Level 4.6 g/dL (3.5-5.1); Alkaline Phosphatase 64 U/L (38-126); Anion Gap 6 mmol/L (8-16); Aspartate Amino Transferase 39 U/L (14-36); Bilirubin,Total 0.7 mg/dL (0.2-1.3); Blood Urea Nitrogen 17 mg/dL (7-17); Calcium 8.8 mg/dL (8.4-10.2); Carbon Dioxide 35 mmol/L (22-30); Chloride 99 mmol/L (98-107); Estimated Glomerular Filt Rate > 60; Glucose 120 mg/dL (65-110); Sodium 140 mmol/L (137-145)
[2022-10-01 09:38] LABS: Hemoglobin A1C 5.4 % (<5.7)
== END 2022-10-01 08:56 | disposition home or self-care (01) ==
PROVIDERS: PCP Family Medicine; Visit Provider Physician Assistant
DX: R73.01 Impaired fasting glucose (principal); I10 Essential (primary) hypertension
CPT/HCPCS: 36415; 80053; 83036

== ENCOUNTER 2023-03-18 09:14 | Outpatient (CLI) | payer MEDICARE, OTHER, SELFPAY ==
[2023-03-18 10:00] LABS: Alanine Aminotransferase 21 U/L (6-35); Albumin Level 4.2 g/dL (3.5-5.1); Alkaline Phosphatase 61 U/L (38-126); Anion Gap 5 mmol/L (8-16); Aspartate Amino Transferase 26 U/L (14-36); Bilirubin,Total 0.6 mg/dL (0.2-1.3); Blood Urea Nitrogen 12 mg/dL (7-17); Carbon Dioxide 35 mmol/L (22-30); Chloride 101 mmol/L (98-107); Estimated Glomerular Filt Rate > 60; Glucose 115 mg/dL (65-110); Potassium 3.7 mmol/L (3.4-5.0); Sodium 141 mmol/L (137-145)
== END 2023-03-18 09:15 | disposition home or self-care (01) ==
LOC: ANHLAB 09:14
PROVIDERS: PCP Family Medicine; Visit Provider Physician Assistant
DX: I10 Essential (primary) hypertension (principal)
CPT/HCPCS: 36415; 80053

== ENCOUNTER 2023-04-29 10:02 | Emergency (ER) | payer MEDICARE, OTHER, SELFPAY ==
[2023-04-29 10:09] VITALS: BP 126/50; PULSE 98; RESP 20; TEMP 37.4; O2SAT 99
--- NOTE | 2023-04-29 10:16 | ED.URI ---
HPI - URI/Sore Throat General Chief Complaint: Upper Respiratory Infection Stated Complaint: Congestion/Sinus Time Seen by Provider: 04/29/23 10:17 Source: patient, RN notes reviewed and old records reviewed Mode of arrival: ambulatory Limitations: no limitations History of Present Illness HPI Narrative: 72 year old female who presents to [facility] with complaints of 8 day history of sinus congestion with cough which is frequent with some tightness and pressure to chest with cough but denies any shortness of breath at rest or any wheezing. Patient reports that sinus congestion and drainage is greenish tinged in color, denies any acute headache or any fevers but admits to some chills. Patient reports that her cough is dry and loose sounding but has been nonproductive. Patient does admit to some dyspnea going up stairs. Patient reports that she called her doctors office and received script for Benzonatate for her cough which is not helping. MD elicited complaint: cough, rhinorrhea and nasal congestion Onset (ago): day(s) (8) Severity: moderate Description of mucous: green Treatments prior to arrival: other (Benzonatate) Related Data Home Medications Medication Instructions Recorded Confirmed lamotrigine 100 mg tablet 100 mg PO DAILY 07/15/19 04/29/23 (Lamictal) buspirone 5 mg tablet 5 mg PO TID 07/09/20 04/29/23 escitalopram oxalate 20 mg tablet 20 mg PO DAILY 07/21/21 04/29/23 (Lexapro) trazodone 100 mg tablet 100 mg PO DAILY 12/10/21 04/29/23 Allergies Allergy/AdvReac Type Severity Reaction Status Date / Time hydrocodone AdvReac Mild HALLUCINATI Verified 04/29/23 10:17 ONS Review of Systems Review of Systems: CONSTITUTIONAL: Reports malaise, chills, sweats, no known fever. EYES: Denies visual changes, redness, or discharge. ENT: Reports rhinorrhea, congestion, sinus pain, no otalgia and no sore throat. CARDIOVASCULAR: Denies chest pain, palpitations, or edema. RESPIRATORY: Reports cough.? Denies any acute dyspnea. States some tightness to chest with cough GASTROINTESTINAL: Denies abdominal pain, nausea, vomiting, diarrhea SKIN: Denies rash or itching. MUSCULOSKELETAL: Denies myalgia. NEUROLOGIC: Denies headache. All systems reviewed & are unremarkable except as noted in HPI and below PMFSH Past Medical History Medical History Allergic rhinitis Chronic insomnia Dizziness MARILY (generalized anxiety disorder) GERD (gastroesophageal reflux disease) History of sterilization procedure HTN (hypertension) MDD (major depressive disorder), recurrent, severe, with psychosis YOLANDA (obstructive sleep apnea) Pure hypercholesterolemia Recurrent cold sores Right knee pain Right shoulder pain Sore in nose Wellness examination Surgical History Surgical History History of hysterectomy S/P trigger finger release 09/04/20; left 3rd digit Family History Family History Mother Hypertension, Onset Age: 60 Patient's mother is Family history of congestive heart failure, Onset Age: 64 Grandparent Carcinoma of colon, Onset Age: 64 Father Hypertension, Onset Age: 63 Patient's father is Carcinoma of colon, Onset Age: 65 Family history of malignant neoplasm of bone Sibling Hypertension Other Diabetes mellitus Family history of coronary artery disease Social History Social History Smoking status: Never smoker Second hand tobacco smoke exposure: No Alcohol intake: never Substance use: current Substance use type: marijuana Living arrangements: alone Occupation/Education: retired Gender identity (if verbalized by the patient): Female Sexual Orientation (if Verbalized by the Patient): Straight or Heterosexual Spi
== END 2023-04-29 10:40 | disposition home or self-care (01) ==
PROVIDERS: Emergency Provider Registered Nurse; PCP Family Medicine
DX: J06.9 Acute upper respiratory infection, unspecified (principal); I10 Essential (primary) hypertension; Z79.899 Other long term (current) drug therapy
CPT/HCPCS: 99213; G0463

== ENCOUNTER 2023-06-04 09:28 | Outpatient (CLI) | payer MEDICARE, OTHER, SELFPAY ==
--- NOTE | ~2023-06-04 | MM_ITS ---
EXAMINATION: MM screening ishan BI w darinel HISTORY: Screening mammogram TECHNIQUE: Craniocaudal and mediolateral oblique 3-D tomosynthesis images were obtained and synthetic 2-D images were generated. CAD analysis was submitted and interpreted. COMPARISON: 12/19/2021 bilateral screening mammogram To diagnostic right mammogram 06/19/2020, 05/20/2019 bilateral screening mammogram examinations BREAST PARENCHYMAL COMPOSITION: There are scattered areas of fibroglandular density. FINDINGS: Scattered bilateral benign calcifications. There is no evidence of suspicious mass, calcifi cation, or architectural distortion to suggest malignancy in either breast. There has been no suspici ous interval change. IMPRESSION: 1. No mammographic evidence of malignancy. 2. Recommend routine screening mammography in one year. BI-RADS Category 2: Benign finding(s). Reviewed, dictated and finalized at location A. 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
== END 2023-06-04 09:29 | disposition home or self-care (01) ==
PROVIDERS: PCP Family Medicine; Visit Provider Physician Assistant
DX: Z12.31 Encounter for screening mammogram for malignant neoplasm of breast (principal)
CPT/HCPCS: 77063; 77067

== ENCOUNTER 2023-09-24 08:37 | Outpatient (CLI) | payer MEDICARE, OTHER, SELFPAY ==
--- NOTE | ~2023-09-24 | XR_ITS ---
EXAMINATION: XR chest 2V DATE: 09/24/2023 08:58 INDICATION: Chronic cough. TECHNIQUE: Frontal and lateral views of the chest were obtained. COMPARISON: Chest 2 views 07/26/2021 FINDINGS: There is no pneumonia, pleural effusion, or pneumothorax. The heart size is normal. There i s a total right shoulder arthroplasty. IMPRESSION: 1. No acute cardiopulmonary disease. Reviewed, dictated and finalized at location A.
[2023-09-24 09:04] LABS: Hematocrit 41.9 % (37.0-47.0); Hemoglobin 13.6 g/dL (12.0-15.0); Mean Corpuscular HGB Conc 32.5 g/dl (32-36); Mean Corpuscular Hemoglobin 29.4 pg (26-34); Mean Corpuscular Volume 90.7 fl (80-100); Mean Platelet Volume 9.1 fl (7.4-10.4); Platelet Count Result 231 k/mm3 (150-375); Red Blood Count 4.62 M/mm3 (4.2-5.4); Red Cell Distribution Width 12.9 % (11.5-14.5); White Blood Count 6.1 K/mm3 (4.5-10.0)
[2023-09-24 09:11] LABS: Appearance Urine Cloudy (Clear); Bacteria Urine 4+ /hpf; Bilirubin Urine Negative (Negative); Blood Urine Negative (Negative); Color Urine Yellow (Yellow); Glucose Urine UA Negative (Negative); Ketones Urine Negative (Negative); Leukocyte Esterase Ur 3+ LEU/UL (Negative); Nitrate Urine Positive (Negative); Non Pathogenic Casts 0-2; Protein Urine Negative (Negative); RBC Urine 0-2 /hpf (0-2); Specific Grav Ur 1.012 (1.001-1.035); Squamous Epithelial Cell Urine None Seen /hpf (Few); Urobilinogen Urine 0.2 mg/dL (<2.0); WBC Urine >100 /hpf (0-3)
[2023-09-24 09:26] LABS: Alanine Aminotransferase 22 U/L (6-35); Albumin Level 4.1 g/dL (3.5-5.1); Alkaline Phosphatase 76 U/L (38-126); Anion Gap 4 mmol/L (4-12); Aspartate Amino Transferase 25 U/L (14-36); Bilirubin,Total 0.5 mg/dL (0.2-1.3); Blood Urea Nitrogen 10 mg/dL (7-17); Calcium 9.1 mg/dL (8.4-10.2); Carbon Dioxide 34 mmol/L (22-30); Chloride 102 mmol/L (98-107); Cholesterol 133 mg/dL (0-200); Estimated Glomerular Filt Rate > 60; Glucose 127 mg/dL (65-110); HDL Direct 48 mg/dL; Potassium 3.4 mmol/L (3.4-5.0); Sodium 140 mmol/L (137-145); Triglycerides 112 mg/dL (<150)
[2023-09-24 09:29] LABS: Add Urine Microscopic? YES
[2023-09-24 09:38] LABS: LDL Cholesterol Direct 71 mg/dL
[2023-09-24 10:17] LABS: Hemoglobin A1C 5.8 % (<5.7)
== END 2023-09-24 08:38 | disposition home or self-care (01) ==
LOC: ANHLAB 08:39
PROVIDERS: PCP Family Medicine; Visit Provider Physician Assistant
DX: N39.0 Urinary tract infection, site not specified (principal); E78.00 Pure hypercholesterolemia, unspecified; I10 Essential (primary) hypertension; M81.0 Age-related osteoporosis without current pathological fracture; R05.3 Chronic cough; Z00.00 Encounter for general adult medical examination without abnormal findings; R73.01 Impaired fasting glucose; E66.9 Obesity, unspecified
CPT/HCPCS: 36415; 71046; 80053; 80061; 81001; 83036; 84443; 85027; 87077; 87086; 87088; 87186

== ENCOUNTER 2023-10-02 19:29 | Emergency (ER) | payer MEDICARE, OTHER, SELFPAY ==
[2023-10-02 19:42] VITALS: BP 131/91; PULSE 77; RESP 16; TEMP 36.8; O2SAT 99
--- NOTE | 2023-10-02 19:42 | ED.GENADULT ---
HPI - General Adult General Chief complaint: Urogenital-Female Stated complaint: Urinary Problem Time Seen by Provider: 10/02/23 19:43 Source: patient, RN notes reviewed and old records reviewed Mode of arrival: ambulatory Limitations: no limitations History of Present Illness HPI narrative: 72-year-old female to [facility] for complaint UTI symptoms. Patient reports she was seen on September 23 and treated with Macrobid. Patient's culture grew 100k+ E. Coli on culture. Which is sensitive to Macrobid. Patient completed treatment today and reports continued symptoms. Related Data Home Medications Medication Instructions Recorded Confirmed buspirone 5 mg tablet 5 mg PO TID 07/09/20 09/24/23 trazodone 100 mg tablet 100 mg PO DAILY 12/10/21 09/24/23 Allergies Allergy/AdvReac Type Severity Reaction Status Date / Time hydrocodone AdvReac Mild HALLUCINATI Verified 09/24/23 07:56 ONS Review of Systems Review of Systems: All systems reviewed & are unremarkable except as noted in HPI and below Constitutional: Constitutional: Reports no additional constitutional complaints Eyes: Eyes: Reports no additional eye complaints ENT: Reports system reviewed and no additional complaints, except as documented Cardiovascular: Cardiovascular: Reports no additional cardiovascular complaints, Denies chest pain and Denies dyspnea Respiratory: Respiratory: Reports no additional respiratory complaints, Denies cough and Denies dyspnea Genitourinary: Genitourinary: Reports as per HPI, Reports nocturia, Reports dysuria, Denies flank pain and Reports urinary urgency Musculoskeletal: Musculoskeletal: Reports no additional musculoskeletal complaints Neurologic: Reports system reviewed and no additional complaints, except as documented Psychiatric: Psychiatric: Reports no additional psychiatric complaints [facility] Past Medical History Medical History Allergic rhinitis Chronic insomnia Dizziness MARILY (generalized anxiety disorder) GERD (gastroesophageal reflux disease) History of sterilization procedure HTN (hypertension) MDD (major depressive disorder), recurrent, severe, with psychosis YOLANDA (obstructive sleep apnea) Pure hypercholesterolemia Recurrent cold sores Right knee pain Right shoulder pain Sore in nose Wellness examination Surgical History Surgical History History of hysterectomy S/P trigger finger release 09/04/20; left 3rd digit Family History Family History Mother Hypertension, Onset Age: 60 Patient's mother is Family history of congestive heart failure, Onset Age: 64 Grandparent Carcinoma of colon, Onset Age: 64 Father Hypertension, Onset Age: 63 Patient's father is Carcinoma of colon, Onset Age: 65 Family history of malignant neoplasm of bone Sibling Hypertension Other Diabetes mellitus Family history of coronary artery disease Social History Social History Smoking status: Never smoker Second hand tobacco smoke exposure: No Alcohol intake: never Substance use: current Substance use type: marijuana Living arrangements: alone Occupation/Education: retired Gender identity (if verbalized by the patient): Female Sexual Orientation (if Verbalized by the Patient): Straight or Heterosexual Spiritual care concerns: No Comments At the time of my signature, I reviewed and agree with the nursing past medical, surgical, social, and family history. There is no relevant family history pertinent to the patient complaint. Exam Const: General: cooperative, healthy appearing, comfortable, no acute distress, alert and well nourished Nutritional Appearance: well nourished Orientation/consciousness: christian
== END 2023-10-02 19:59 | disposition home or self-care (01) ==
PROVIDERS: Emergency Provider Nurse Practitioner Family; PCP Family Medicine
DX: N39.0 Urinary tract infection, site not specified (principal); K21.9 Gastro-esophageal reflux disease without esophagitis; I10 Essential (primary) hypertension; E78.00 Pure hypercholesterolemia, unspecified; F41.1 Generalized anxiety disorder; F33.3 Major depressive disorder, recurrent, severe with psychotic symptoms
CPT/HCPCS: 81003; 87086; 99213; G0463

== ENCOUNTER 2023-12-21 01:18 | Day surgery (SDC) | payer MEDICARE, OTHER, SELFPAY ==
[2023-12-07 12:57] VITALS: BMI 28.6
[2023-12-21 07:47] VITALS: BP 124/67; PULSE 67; RESP 18; TEMP 36.1; O2SAT 100
[2023-12-21] MEDS: LACTATED RINGERS 1,000 ML 150 ML IV CONT (07:54)
--- NOTE | 2023-12-21 08:32 | P.PNAN_ITS ---
Anes - Initial Pre Proc Eval Procedure: Operation Date: 12/21/23 09:00 Proposed Procedures p Colonoscopy - Bill Henao MD Date/Time: 12/21/23 08:32 Surgeon: Bill Henao MD Pre Op Diagnosis: Personal hx of colon polyps Patient Data Age: 73 Gender: F Height: 1.57 m Weight: 71.5 kg Last Vital Signs Temp 97 F L 12/21/23 07:47 Pulse 67 12/21/23 07:47 Resp 18 12/21/23 07:47 BP 124/67 12/21/23 07:47 Pulse Ox 100 12/21/23 07:47 O2 Del Method Room Air 12/21/23 07:47 Allergies Allergy/AdvReac Type Severity Reaction Status Date / Time hydrocodone Allergy Mild HALLUCINATI Verified 12/21/23 07:45 ONS Home Medications Medication Instructions Recorded Confirmed Type trazodone 100 mg tablet 100 mg PO HS 12/10/21 12/07/23 History meclizine 12.5 mg tablet 12.5 mg PO TID PRN dizziness #60 05/13/22 12/07/23 Rx tabs bupropion HCl 300 mg 24 hr tablet, 300 mg PO QAM #1 tablet 09/16/22 12/07/23 Rx extended release escitalopram oxalate 20 mg tablet 20 mg PO DAILY #90 tabs 03/05/23 12/07/23 Rx (Lexapro) amlodipine 10 mg tablet 10 mg PO DAILY #90 tabs 09/24/23 12/07/23 Rx hydrochlorothiazide 12.5 mg capsule 12.5 mg PO DAILY #90 caps 09/24/23 12/07/23 Rx losartan 100 mg tablet 100 mg PO DAILY #90 tabs 09/24/23 12/07/23 Rx rabeprazole 20 mg tablet,delayed 20 mg PO BID #180 tabs 09/24/23 12/07/23 Rx release ropinirole 3 mg tablet 3 mg PO BID #180 tabs 09/24/23 12/07/23 Rx sumatriptan succinate 100 mg tablet 100 mg PO Q2-4H PRN Headache #30 09/24/23 12/07/23 Rx tabs tramadol 50 mg tablet 50 mg PO Q6H PRN pain #30 tabs 09/24/23 12/07/23 Rx valacyclovir 1 gram tablet See Rx Instructions .Route 09/24/23 12/07/23 Rx (Valtrex) .COMPLEX #28 tabs cariprazine 1.5 mg capsule 1.5 mg PO DAILY 12/07/23 12/07/23 History cholecalciferol (vitamin D3) 125 125 mcg PO HS 12/07/23 12/07/23 History mcg (5,000 unit) tablet (Vitamin D3) diclofenac sodium 25 mg 25 mg PO BID 12/07/23 12/07/23 History tablet,delayed release gabapentin 300 mg capsule 300 mg PO BID 12/07/23 12/07/23 History melatonin 5 mg tablet 5 mg PO HS 12/07/23 12/07/23 History montelukast 20 mg PO DAILY PRN Allergy Symptoms 12/07/23 12/07/23 History Patient hx anesthesia problems: none Family hx anesthesia problems: none Results Review: All pre-operative results and documents have been reviewed as part of the pre- operative evaluation. [facility] Past Medical History Medical History Allergic rhinitis Chronic insomnia Dizziness MARILY (generalized anxiety disorder) GERD (gastroesophageal reflux disease) History of sterilization procedure HTN (hypertension) MDD (major depressive disorder), recurrent, severe, with psychosis YOLANDA (obstructive sleep apnea) Pure hypercholesterolemia Recurrent cold sores Right knee pain Right shoulder pain Sore in nose Wellness examination Surgical History Surgical History History of hysterectomy S/P trigger finger release 09/04/20; left 3rd digit Fami
--- NOTE | 2023-12-21 08:32 | PM.HPGS ---
History of Present Illness History of Present Illness Consent: Risks, benefits, and alternatives have been discussed and questions answered. Patient agrees to proceed with procedure. Chief complaint: Personal hx of colon polyps Narrative: Octavia Ferreira is a 73 year old female with colon polyp in 2019 Review of Systems Review of Systems: All systems reviewed & are unremarkable except as noted in HPI and below PMFSH Past Medical History Medical History (Updated 12/21/23 @ 08:34 by Bill Henao MD) Allergic rhinitis Chronic insomnia Colon polyp Dizziness MARILY (generalized anxiety disorder) GERD (gastroesophageal reflux disease) History of sterilization procedure HTN (hypertension) MDD (major depressive disorder), recurrent, severe, with psychosis YOLANDA (obstructive sleep apnea) Pure hypercholesterolemia Recurrent cold sores Right knee pain Right shoulder pain Sore in nose Wellness examination Surgical History Surgical History History of hysterectomy S/P trigger finger release 09/04/20; left 3rd digit Family History Family History Mother Hypertension, Onset Age: 60 Patient's mother is Family history of congestive heart failure, Onset Age: 64 Grandparent Carcinoma of colon, Onset Age: 64 Father Hypertension, Onset Age: 63 Patient's father is Carcinoma of colon, Onset Age: 65 Family history of malignant neoplasm of bone Sibling Hypertension Other Diabetes mellitus Family history of coronary artery disease Social History Social History Smoking status: Never smoker Second hand tobacco smoke exposure: No Alcohol intake: current Substance use: never Substance use type: does not use Living arrangements: with family Occupation/Education: retired Gender identity (if verbalized by the patient): Female Sexual Orientation (if Verbalized by the Patient): Straight or Heterosexual Spiritual care concerns: No Meds Home Medications and Allergies Home Medications Medication Instructions Recorded Confirmed Type trazodone 100 mg tablet 100 mg PO HS 12/10/21 12/07/23 History meclizine 12.5 mg tablet 12.5 mg PO TID PRN dizziness #60 05/13/22 12/07/23 Rx tabs bupropion HCl 300 mg 24 hr tablet, 300 mg PO QAM #1 tablet 09/16/22 12/07/23 Rx extended release escitalopram oxalate 20 mg tablet 20 mg PO DAILY #90 tabs 03/05/23 12/07/23 Rx (Lexapro) amlodipine 10 mg tablet 10 mg PO DAILY #90 tabs 09/24/23 12/07/23 Rx hydrochlorothiazide 12.5 mg capsule 12.5 mg PO DAILY #90 caps 09/24/23 12/07/23 Rx losartan 100 mg tablet 100 mg PO DAILY #90 tabs 09/24/23 12/07/23 Rx rabeprazole 20 mg tablet,delayed 20 mg PO BID #180 tabs 09/24/23 12/07/23 Rx release ropinirole 3 mg tablet 3 mg PO BID #180 tabs 09/24/23 12/07/23 Rx sumatriptan succinate 100 mg tablet 100 mg PO Q2-4H PRN Headache #30 09/24/23 12/07/23 Rx tabs tramadol 50 mg tablet 50 mg PO Q6H PRN pain #30 tabs 09/24/23 12/07/23 Rx valacyclovir 1 gram tablet See Rx Instructions .Route 09/24/23 12/07/23 Rx (Valtrex) .COMPLEX #28 tabs cariprazine 1.5 mg capsule 1.5 mg PO DAILY 12/07/23 12/07/23 History cholecalciferol (vitamin D3) 125 125 mcg PO HS 12/07/23 12/07/23 History mcg (5,000 unit) tablet (Vitamin D3) diclofenac sodium 25 mg 25 mg PO BID 12/07/23 12/07/23 History tablet,delayed release gabapentin 300 mg capsule 300 mg PO BID 12/07/23 12/07/23 History melatonin 5 mg tablet 5 mg PO HS 12/07/23 12/07/23 History montelukast 20 mg PO DAILY PRN Allergy Symptoms 12/07/23 12/07/23 History Allergies Allergy/AdvReac Type Severity Reaction Status Date / Time hydrocodone Allergy Mild HALLUCINATI Verified 12/21/23 07:45 ONS Vital Signs Vital Signs - 24 hr 12/21/23 07:
[2023-12-21 08:53] VITALS: BP 94/49; PULSE 61; RESP 16; O2SAT 95
[2023-12-21 09:03] VITALS: BP 105/51; PULSE 63; RESP 19; O2SAT 96
[2023-12-21 09:13] VITALS: BP 100/62; PULSE 62; RESP 21; O2SAT 99
== END 2023-12-21 09:19 | disposition home or self-care (01) ==
PROVIDERS: PCP Family Medicine; Visit Provider Internal Medicine Gastroenterology
PROC: 0DJD8ZZ Inspection of Lower Intestinal Tract, Via Natural or Artificial Opening Endoscopic (ICD-10-PCS; CPT 45378; principal; 2023-12-21 09:00)
DX: Z12.11 Encounter for screening for malignant neoplasm of colon (principal); K64.8 Other hemorrhoids; I10 Essential (primary) hypertension; E78.00 Pure hypercholesterolemia, unspecified; F51.04 Psychophysiologic insomnia; F41.9 Anxiety disorder, unspecified; K21.9 Gastro-esophageal reflux disease without esophagitis; F33.3 Major depressive disorder, recurrent, severe with psychotic symptoms; G47.33 Obstructive sleep apnea (adult) (pediatric); Z79.891 Long term (current) use of opiate analgesic; Z98.890 Other specified postprocedural states; Z86.010 Personal history of colon polyps; Z80.0 Family history of malignant neoplasm of digestive organs; Z80.8 Family history of malignant neoplasm of other organs or systems; Z82.49 Family history of ischemic heart disease and other diseases of the circulatory system
CPT/HCPCS: G0105; J2704; J7120

== ENCOUNTER 2024-03-28 18:51 | Emergency (ER) | payer MEDICARE, OTHER, SELFPAY ==
--- NOTE | 2024-03-28 19:03 | ED.FEVER ---
HPI - Fever General Chief Complaint: Fever Stated Complaint: Fever/throat Time Seen by Provider: 03/28/24 19:03 Source: patient, RN notes reviewed and old records reviewed Mode of arrival: ambulatory Limitations: no limitations History of Present Illness HPI Narrative: 73 year old female who present to [facility] care with complaints of fever, and sore throat for the past 2 days with some sinus congestion and occasional cough..Patient reports that she had a fever of 102.3F prior to arrival and took 2 Tylenols before she came to clinic. Patient also reports that she took home COVID test which was negative. Patient reports that grandchild did have strep 2 weeks ago and she was around him, states that throat is sore to swallow. MD elicited complaint: fever and other (sorethroat) Onset (ago): day(s) (2) Measured temperature: 39.1 C Treatments prior to arrival fever: acetaminophen Related Data Home Medications Medication Instructions Recorded Confirmed trazodone 100 mg tablet 100 mg PO HS 12/10/21 12/07/23 cariprazine 1.5 mg capsule 1.5 mg PO DAILY 12/07/23 12/07/23 cholecalciferol (vitamin D3) 125 125 mcg PO HS 12/07/23 12/07/23 mcg (5,000 unit) tablet (Vitamin D3) melatonin 5 mg tablet 5 mg PO HS 12/07/23 12/07/23 montelukast 20 mg PO DAILY PRN Allergy Symptoms 12/07/23 12/07/23 Requip 03/28/24 Allergies Allergy/AdvReac Type Severity Reaction Status Date / Time hydrocodone Allergy Mild HALLUCINATI Verified 12/21/23 07:45 ONS Review of Systems Review of Systems: CONSTITUTIONAL: Reports malaise, chills, sweats, or fever. EYES: Denies visual changes, redness, or discharge. ENT: Reports rhinorrhea, congestion, no sinus pain, no otalgia and positive sore throat. CARDIOVASCULAR: Denies chest pain, palpitations, or edema. RESPIRATORY: Reports cough.? Denies dyspnea. GASTROINTESTINAL: Denies abdominal pain, nausea, vomiting, diarrhea SKIN: Denies rash or itching. MUSCULOSKELETAL: Denies myalgia. NEUROLOGIC: Denies headache. All systems reviewed & are unremarkable except as noted in HPI and below PMFSH Past Medical History Medical History Allergic rhinitis Chronic insomnia Colon polyp Dizziness MARILY (generalized anxiety disorder) GERD (gastroesophageal reflux disease) History of sterilization procedure HTN (hypertension) MDD (major depressive disorder), recurrent, severe, with psychosis YOLANDA (obstructive sleep apnea) Pure hypercholesterolemia Recurrent cold sores Right knee pain Right shoulder pain Sore in nose Wellness examination Surgical History Surgical History History of hysterectomy S/P trigger finger release 09/04/20; left 3rd digit Family History Family History Mother Hypertension, Onset Age: 60 Patient's mother is Family history of congestive heart failure, Onset Age: 64 Grandparent Carcinoma of colon, Onset Age: 64 Father Hypertension, Onset Age: 63 Patient's father is Carcinoma of colon, Onset Age: 65 Family history of malignant neoplasm of bone Sibling Hypertension Other Diabetes mellitus Family history of coronary artery disease Social History Social History Smoking status: Never smoker Second hand tobacco smoke exposure: No Alcohol intake: current Substance use: never Substance use type: does not use Living arrangements: with family Occupation/Education: retired Gender identity (if verbalized by the patient): Female Sexual Orientation (if Verbalized by the Patient): Straight or Heterosexual Spiritual care concerns: No Comments At time of signature, agree with nursing past medical, surgical, social and family history. There is no relevant family history pertinent to the p
[2024-03-28 19:05] VITALS: BP 127/66; PULSE 97; RESP 16; TEMP 37.9; O2SAT 95
[2024-03-28 19:18] LABS: EDSTREPNEGPOS1 Positive (Negative)
== END 2024-03-28 19:20 | disposition home or self-care (01) ==
PROVIDERS: Emergency Provider Registered Nurse; PCP Family Medicine
DX: J02.0 Streptococcal pharyngitis (principal); K21.9 Gastro-esophageal reflux disease without esophagitis; I10 Essential (primary) hypertension; E78.00 Pure hypercholesterolemia, unspecified; F33.3 Major depressive disorder, recurrent, severe with psychotic symptoms
CPT/HCPCS: 87880; 99213; G0463

== ENCOUNTER 2024-04-20 10:36 | Outpatient (CLI) | payer MEDICARE, OTHER, SELFPAY ==
[2024-04-20 11:26] LABS: Basophils Percent Auto 0.6 % (0.2-1.2); Eosinophils Absolute Auto 0.2 K/mm3 (0-0.3); Eosinophils Percent Auto 2.3 % (0-4.4); Hematocrit 40.7 % (37.0-47.0); Hemoglobin 13.6 g/dL (12.0-15.0); Immature Granulocyte Absolute 0.01 K/mm3 (0.00-0.031); Immature Granulocyte Percent A 0.2 % (0-0.5); Lymphocytes Absolute Auto 1.91 K/mm3 (0.9-3.2); Lymphocytes Percent Auto 28.7 % (18.3-44.2); Mean Corpuscular HGB Conc 33.4 g/dl (32-36); Mean Corpuscular Hemoglobin 30.1 pg (26-34); Mean Platelet Volume 9.1 fl (7.4-10.4); Monocytes Absolute Auto 0.6 K/mm3 (0.1-0.6); Monocytes Percent Auto 8.9 % (2.6-8.5); Neutrophils Percent Auto 59.3 % (45.5-73.1); Platelet Count Result 269 k/mm3 (150-375); Red Blood Count 4.52 M/mm3 (4.2-5.4); White Blood Count 6.7 K/mm3 (4.5-10.0)
[2024-04-20 11:40] LABS: Alanine Aminotransferase 27 U/L (6-35); Albumin Level 4.3 g/dL (3.5-5.1); Alkaline Phosphatase 61 U/L (38-126); Anion Gap 7 mmol/L (4-12); Aspartate Amino Transferase 30 U/L (14-36); Bilirubin,Total 0.5 mg/dL (0.2-1.3); Blood Urea Nitrogen 17 mg/dL (7-17); Calcium 9.2 mg/dL (8.4-10.2); Carbon Dioxide 33 mmol/L (22-30); Chloride 101 mmol/L (98-107); Estimated Glomerular Filt Rate > 60; Glucose 112 mg/dL (65-110); Potassium 3.9 mmol/L (3.4-5.0); Sodium 141 mmol/L (137-145)
[2024-04-20 13:04] LABS: Folic Acid 5.4 ng/mL (2.76->20)
== END 2024-04-20 10:37 | disposition home or self-care (01) ==
PROVIDERS: PCP Family Medicine; Visit Provider Psychiatry & Neurology Psychiatry
DX: F33.2 Major depressive disorder, recurrent severe without psychotic features (principal)
CPT/HCPCS: 36415; 80053; 82607; 82746; 84443; 85025

== ENCOUNTER 2024-07-04 09:07 | Outpatient (CLI) | payer MEDICARE, OTHER, SELFPAY ==
--- NOTE | ~2024-07-04 | MM_ITS ---
EXAMINATION: MM screening ishan BI w darinel HISTORY: Screening TECHNIQUE: Craniocaudal and mediolateral oblique 3-D tomosynthesis images were obtained and synthetic 2-D images were generated. CAD analysis was submitted and interpreted. COMPARISON: Comparison to multiple prior studies sequentially, with oldest reviewed study dated 04/15. BREAST PARENCHYMAL COMPOSITION: Not dense: There are scattered areas of fibroglandular density. FINDINGS: There is no evidence of suspicious mass, calcification, or architectural distortion to sugg est malignancy in either breast. There has been no suspicious interval change. IMPRESSION: 1. No mammographic evidence of malignancy. 2. Recommend routine screening mammography in one year. 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
== END 2024-07-04 09:08 | disposition home or self-care (01) ==
LOC: ANHIMG 09:10
PROVIDERS: PCP Family Medicine; Visit Provider Family Medicine
DX: Z12.31 Encounter for screening mammogram for malignant neoplasm of breast (principal)
CPT/HCPCS: 77063; 77067

== ENCOUNTER 2024-07-15 15:31 | Emergency (ER) | payer MEDICARE, OTHER, SELFPAY ==
--- OUTSIDE RECORDS SUMMARY | 2024-07-15 15:33 | XMS_ITS | Clinical Summary ---
Author Organization [facility] [address] Address [address] [place] [address] Care Team Providers Care Scutcher Tender Name Role Phone Og Torres MD Primary Care Provider Allergies Active Allergy Reactions Criticality Noted Date Comments Ampicillin Itching Low 01/19/2019 Hydrocodone Hallucinations Medium Medications RABEprazole DR (ACIPHEX) 20 mg EC tablet Take 20 mg by mouth circus roustabout before breakfast Active rOPINIRole (REQUIP) 2 mg tablet Take 3 mg by mouth 2 (two) times a day Active vortioxetine (TRINTELLIX) 20 mg tabletIndicatio ns:major depressive disorder 20 mg every morning Active lamoTRIgine (LaMICtal) 100 mg tablet Take 100 mg by mouth nightly Active escitalopram (LEXAPRO) 10 mg tablet Take 10 mg by mouth daily Active cholecalciferol (VITAMIN D-3) 2,000 unit capsule Take 1 capsule (2,000 Units total) by mouth daily 30 capsule 9 Active amLODIPine (NORVASC) 10 mg tablet Take 10 mg by mouth daily Active benazepril (LOTENSIN) 40 mg tablet Take 40 mg by mouth daily Active zolpidem (AMBIEN) 10 mg tabletIndicatio ns:Sleep-Onset Insomnia Take 10 mg by mouth nightly as needed for sleep Active gabapentin (NEURONTIN) 100 mg capsuleIndicati ons:pain Take 1 capsule (100 mg total) by mouth 3 (three) times a day 270 capsule 0 Active cyclobenzaprine (FLEXERIL) 10 mg tablet Take 1 tablet (10 mg total) by mouth nightly as needed for muscle spasms 30 tablet 0 Active traMADoL (ULTRAM) 50 mg tabletIndicatio ns:Pain Take 1 tablet (50 mg total) by mouth every 6 (six) hours as needed for pain 63 tablet 0 Active Active Problems Problem Noted Date Diagnosed Date Aftercare following right knee joint replacement surgery 01/31/2019 Primary osteoarthritis of right knee 01/03/2019 Overview (01/03/2019): Added automatically from request for surgery [id number] Rotator cuff arthropathy, right 08/31/2018 Overview (08/31/2018): Added automatically from request for surgery [id number] Biceps tendinitis on right 08/31/2018 Overview (08/31/2018): Added automatically from request for surgery [id number] Surgical History Surgery Date Site/Laterality Comments OTHER SURGICAL HISTORY hysterectomy with BSO JOINT REPLACEMENT right total shoulder CARPAL TUNNEL RELEASE Bilateral Medical History Medical History Date Comments Hx Other Medical Jay. depressive disorder Hx Other Medical generalized anx iety disorder Hx Other Medical restless leg sy ndrome Hypertension hypertension Hx Other Medical dyslipidemia Hx Other Medical obstructive sle ep apnea-CPAP Sleep apnea GERD (gastroesophageal reflux disease) Family History Medical History Relation Name Comments Bone cancer Father 2 Bone Cancer; Ca use of : Bone Cancer Coronary artery disease Mother 2 Juancarlos nary Artery Bypass Graft; Heart failure Mother 2 Congestive Hea rt Failure; Cause of : Congestive Heart Failure Relation Name Status Comments Father 1 Father 2 Mother 1 Mother 2 Social History Tobacco Use Types Packs/Day Years Used Date Smoking Tobacco: Never Smokeless Tobacco: Never Alcohol Use Standard Drinks/Week Comments No 0 (1 standard drink = 0.6 oz pur e alcohol) PHQ-2 Answer Date Recorded PHQ-2 Score 2 02/05/2019 Comments No Sex and Gender Information Value Date Recorded Sex Assigned at Not on file 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 Gender Identity Not on file Sexual Orientation Not on file Obstetrics History Last Filed Vital Signs Vital Sign Reading Time Taken Comments Blood Pressure 165/83 11/02/2019 9:27 AM CDT Pulse 84 11/02/2019 9:27 AM CDT Temperature 36.7 ??C (98 ??F) 01/20/2019 11:20 AM CDT Respiratory Rate 22 01/20/2019 11:20 AM CDT Oxygen Saturation 98% 01/20/2019 11:20 AM CDT Inhaled Oxygen Concentration - - Weight 72.6 kg (160 lb) 11/02/2019 9:27 AM CDT Height 157.5 cm (5' 2 ) 11/02/2019 9:27 AM CDT Body Mass Index 29.26 11/02/2019 9:27 AM CDT Plan of Treatment Not on file Medical Devices Implanted Type Area Software Computer Specialist Device Identifier Shelf Expiration Date Model / Serial / Lot Exactech 320-15-05 Equinoxe Lock Reverse Shoulder Glenosphere Screw Bone - [id number] - [id number] Implanted:Qty: 1 on 09/21/2018 by Mateo Calle MD at [facility] Right: Shoulder Exactech 08/12/2023 320-15-05 / [id number] / Exactech 320-15- Equinoxe Reverse Shoulder Standard Plate Glenoid - [id number] - [id number] Implanted:Qty: 1 on 09/21/2018 by Mateo Calle MD at [facility] Right: Shoulder [employer]ech 08/11/2028 320-15- / [id number] / Exactech 320-20-00 Reverse Torque Define Shoulder Kit Screw - [id number] - [id number] Implanted:Qty: 1 on 09/21/2018 by Mateo Calle MD at [facility] Right: Shoulder [employer]ech 08/18/2023 320-20-00 / [id number] / Equinoxe Humeral Stem Primary, Press-Fit Implanted:Qty: 1 on 09/21/2018 by Mateo Calle MD at [facility] Right: Shoulder Exactech [id number] 08/11/2028 300-01-12 / [id number] / Exactech 320--38 38mm Glenosphere Reverse Shoulder Component Glenoid - [id number] - [id number] Implanted:Qty: 1 on 09/21/2018 by Mateo Calle MD at [facility] Right: Shoulder [employer] 08/11/2028 320--38 / [id number] / Exactech 320-20-42 Equinoxe 4.5mm 42mm Kit Compression Lock Cap Reverse Shoulder - [id number] - [id number] Implanted:Qty: 1 on 09/21/2018 by Mateo Calle MD at [facility] Right: Shoulder [employer]ech 07/27/2022 320-20-42 / [id number] / Exactech 320-20-26 Equinoxe 4.5mm 26mm Kit Compression Lock Cap Reverse Shoulder - [id number] - [id number] Implanted:Qty: 1 on 09/21/2018 by Mateo Calle MD at [facility] Right: Shoulder Ex[employer]ech 08/01/2023 320-20-26 / [id number] / Exactech 320-10-00 Equinoxe Reverse Shoulder +0mm Tray Humeral Adapter - [id number] - [id number] Implanted:Qty: 1 on 09/21/2018 by Mateo Calle MD at [facility] Right: Shoulder Ex[employer]ech 05/30/2028 320-10-00 / [id number] / Exactech 320-38-00 Equinoxe 38mm Reverse Shoulder +0mm Liner Humeral - [id number] - [id number] Implanted:Qty: 1 on 09/21/2018 by Mateo Calle MD at [facility] Right: Shoulder Exactech 08/05/2023 320-38-00 / [id number] / [employer] 5536-B-400 Triathlon Coated Knee 4 Baseplate Tibial Tritanium Sterile - [id number] Implanted:Qty: 1 on 01/19/2019 by Mateo Calle MD at [facility] Right: Knee [employer] 10/08/2023 5536-B-40 0 / / [id number] [employer] 5517-F-402 Triathlon Cruciate Retain Bead Knee Right 4 Component Femoral Pa - [id number] Implanted:Qty: 1 on 01/19/2019 by Mateo Calle MD at [facility] Right: Knee [employer] 08/05/2021 5517-F-40 2 / / [id number] [employer] 5531-G-409 Triathlon 9mm Cruciate Substitute Knee 4 Insert Tibial X3 - [id number] Implanted:Qty: 1 on 01/19/2019 by Mateo Calle MD at [facility] Right: Knee [employer] 04/19/2023 5531-G-40 9 / / [id number] Insurance [place] [address] [employer] MED[employer] PPO Advance Directives For more information, please contact: [phone] * Full Code (Latest Code Status on File) Date Activated Date Inactivated Comments 01/19/2019 12:02 PM 01/20/2019 9:21 PM * Full Code Date Activated Date Inactivated Comments 09/21/2018 7:22 PM 09/22/2018 6:16 PM Care Teams Scutcher Tender Relationship Specialty Start Date End Date Og Torres MD [address] [facility] [address] [place] [address] PCP - General Family Medicine 08/20/18
--- OUTSIDE RECORDS SUMMARY | 2024-07-15 15:33 | XMS_ITS | Referral Summary ---
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 before breakfast Active rOPINIRole (REQUIP) 2 mg [...] (01/03/2019): Added automatically from request for surgery [id number] Rotator cuff arthropathy, right 08/31/2018 Overview (08/31/2018): Added automatically from request for surgery [id number] Biceps tendinitis on right 08/31/2018 Overview (08/31/2018): Added automatically from request for surgery [id number] Social History Tobacco Use Types Packs/Day Years Used Date Smoking Tobacco: Never Smokeless Tobacco: Never Alcohol Use Standard Drinks/Week Comments No 0 (1 standard drink = 0.6 oz pur e alcohol) PHQ-2 Answer Date Recorded PHQ-2 Score 2 02/05/2019 Comments No Sex and Gender Information Value Date Recorded Sex Assigned at Not on file 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 Gender Identity Not on file Sexual Orientation Not on file Last Filed Vital Signs Vital Sign Reading [...] on file Medical Devices Implanted Type Area Help Desk Technician Device Identifier Shelf Expiration Date Model / Serial / Lot ExactMuseAmi 320-15-05 Equinoxe Lock Reverse Shoulder Glenosphere Screw Bone - [id number] - [id number] Implanted:Qty: 1 on 09/21/2018 by Mateo Calle MD at [facility] Right: Shoulder [employer] 08/12/2023 320-15-05 / [id number] / [employer]ech 320-15-01 Equinoxe Reverse Shoulder Standard Plate Glenoid - [id number] - [id number] Implanted:Qty: 1 on 09/21/2018 by Mateo Calle MD at [facility] Right: Shoulder [employer] 08/11/2028 320-15-01 / [id number] / Exactech 320-20-00 Reverse Torque Define Shoulder Kit Screw - [id number] - [id number] Implanted:Qty: 1 on 09/21/2018 by Mateo Calle MD at [facility] Right: Shoulder [employer] 08/18/2023 320-20-00 / [id number] / Equinoxe Humeral Stem Primary, Press-Fit Implanted:Qty: 1 on 09/21/2018 by Mateo Calle MD at [facility] Right: Shoulder [employer] [id number] 08/11/2028 300-01-12 / [id number] / Exactech 320-01-38 38mm Glenosphere Reverse Shoulder Component Glenoid - [id number] - [id number] Implanted:Qty: 1 on 09/21/2018 by Mateo Calle MD at [facility] Right: Shoulder [employer] 08/11/2028 320-01-38 / [id number] / Exactech 320-20-42 Equinoxe 4.5mm 42mm Kit Compression Lock Cap Reverse Shoulder - [id number] - [id number] Implanted:Qty: 1 on 09/21/2018 by Mateo Calle MD at [facility] Right: Shoulder [employer] 07/27/2022 320-20-42 / [id number] / [employer]ech 320-20-26 Equinoxe 4.5mm 26mm Kit Compression Lock Cap Reverse Shoulder - [id number] - [id number] Implanted:Qty: 1 on 09/21/2018 by Mateo Calle MD at [facility] Right: Shoulder [employer] 08/01/2023 320-20-26 / [id number] / [employer]actech 320-10-00 Equinoxe Reverse Shoulder +0mm Tray Humeral Adapter - [id number] - [id number] Implanted:Qty: 1 on 09/21/2018 by Mateo Calle MD at [facility] Right: Shoulder [employer] 05/30/2028 320-10-00 / [id number] / Exactech 320-38-00 Equinoxe 38mm Reverse Shoulder +0mm Liner Humeral - [id number] - [id number] Implanted:Qty: 1 on 09/21/2018 by Mateo Calle MD at [facility] Right: Shoulder [employer] 08/05/2023 320-38-00 / [id number] / [employer] 5536-B-400 Triathlon Coated Knee 4 Baseplate Tibial Tritanium Sterile - [id number] Implanted:Qty: 1 on 01/19/2019 by Mateo Calle MD at [facility] Right: Knee [employer] 10/08/2023 5536-B-40 0 / / [id number] [employer] 5517-F-402 Triathlon Cruciate Retain Bead Knee Right 4 Component Femoral Pa - [id number] Implanted:Qty: 1 on 01/19/2019 by Mateo Calle MD at [facility] Right: Knee [employer] 08/05/2021 5517-F-40 2 / / [id number] [employer] 5531-G-409 Triathlon 9mm Cruciate Substitute Knee 4 Insert Tibial X3 - [id number] Implanted:Qty: 1 on 01/19/2019 by Mateo Calle MD at [facility] Right: Knee [employer] 04/19/2023 5531-G-40 9 / / [id number] [place] [address] [employer] [place] [address] [employer] MEDIC[employer] PPO Advance Directives For more information, please contact: [phone] * Full Code (Latest Code Status on File) Date Activated Date Inactivated Comments 01/19/2019 12:02 PM 01/20/2019 9:21 PM * Full Code Date Activated Date Inactivated Comments 09/21/2018 7:22 PM 09/22/2018 6:16 PM Care Teams Siding Stapler Relationship Specialty Start Date End Date Og Torres MD [address] [facility] [address] [place] [address] PCP - General Family Medicine 08/20/18
--- OUTSIDE RECORDS SUMMARY | 2024-07-15 15:33 | XMS_ITS | Clinical Summary ---
Author Organization [facility] Address [address] [facility] [address] [place] [address] Phone Care Team Providers Care Vibration Engineer Name Role Phone Og Torres MD Primary Care Provider Social History Tobacco Use Types Packs/Day Years Used Date Smoking Tobacco: Never Assessed Comments Unknown Sex and Gender Information Value Date Recorded Sex Assigned at Not on file Legal Sex Female 9:53 AM CDT Gender Identity Not on file Sexual Orientation Not on file Plan of Treatment Health Maintenance Due Date Last Done Comments DEXA Bone Density 1950 Hepatitis C Virus (HCV) Screening 1950 TdaP Immunization 1950 Cologuard 2002 Immunochemical Fecal Occult Blood 2002 Mammogram 2002 Pneumococcal Immunization (5 0+ years) (1 of 1 - PCV) 2002 Zoster Immunization (1 of 2) 2002 Colonoscopy 12/30/2023 12/29/2018 Colorectal Cancer Screening 12/30/2023 Influenza Immunization (#1) 2024 SARS-COV-2 Immunization ( - season) 2024 Respiratory Syncytial Virus (RSV) Immunization (Adult) (1 - 1-dose 75+ series) 10/26/2027 12/29/2018 Hepatitis B Immunization Aged Out No longer eligible based on patient's age to complete this topic Meningococcal Immunization (ACWY) Aged Out No longer eligible based on patient's age to complete this topic Rotavirus Immunization Aged Out No lo nger eligible based on patient's age to complete this topic Procedures Procedure Name Priority Date/Time Associated Diagnosis Comments COLONOSCOPY Routine 12/29/2018 from Last 3 Months or Most Recently Relevant to Health Maintenance Results * COLONOSCOPY (12/29/2018) Velasquez Bonilla DO PROCEDURE/MINOR SURGICAL ORDERA BLES Edited Result - Final from Last 3 Months or Most Recently Relevant to Health Maintenance Insurance MEDICARE C [facility] [facility] Care Teams Vibration Engineer Relationship Specialty Start Date End Date Og Torres MD [address] [place] [address] PCP - General Family Medicine 11/12/18
[2024-07-15 15:41] VITALS: BP 142/78; PULSE 88; RESP 18; TEMP 36.7; O2SAT 99
--- NOTE | 2024-07-15 15:41 | PC.NURSE ---
in br to obtain ua spec.
--- NOTE | 2024-07-15 15:50 | ED.WOUNDLAC ---
HPI - Wound/Laceration General Chief Complaint: Wound/Laceration Stated Complaint: needs tetnus shot History of Present Illness HPI narrative: patient is a 73-year-old female, past medical history significant for hypertension, presents to [facility] with a wound of the left forearm, sustained shortly prior to arrival when she was moving patio furniture and a sharp metal edge abraded the mid left forearm/dorsal aspect. She states that bleeding was quickly controlled by applying pressure, she denies foreign body risk. She states that she is uncertain when she last had a tetanus vaccination and even contacted her primary care provider's office to determine if she has had one in the last 5 years, but states that they had no documented history of tetanus for her. She presents today for a booster. She has no acute complaints otherwise. He is right-hand dominant Related Data Home Medications ?Medication ?Instructions ?Recorded ?Confirmed ?Last Taken ?Type trazodone 100 mg tablet 100 mg PO HS 12/10/21 07/15/24 Unknown History cariprazine 1.5 mg capsule 1.5 mg PO DAILY 12/07/23 07/15/24 Unknown History cholecalciferol (vitamin D3) 125 125 mcg PO HS 12/07/23 07/15/24 Unknown History mcg (5,000 unit) tablet (Vitamin D3) melatonin 5 mg tablet 5 mg PO HS 12/07/23 07/15/24 Unknown History Allergies Allergy/AdvReac Type Severity Reaction Status Date / Time hydrocodone Allergy Mild HALLUCINATI Verified 07/15/24 15:46 ONS Review of Systems Integumentary/Breasts: Skin/Breast: Reports as per HPI [facility] Past Medical History Medical History Colon polyp History of sterilization procedure Wellness examination Sore in nose Dizziness YOLANDA (obstructive sleep apnea) Chronic insomnia MARILY (generalized anxiety disorder) Right shoulder pain Right knee pain Recurrent cold sores Allergic rhinitis MDD (major depressive disorder), recurrent, severe, with psychosis GERD (gastroesophageal reflux disease) Pure hypercholesterolemia HTN (hypertension) Surgical History Surgical History S/P trigger finger release 09/04/20; left 3rd digit History of hysterectomy Family History Family History Mother Hypertension, Onset Age: 60 Patient's mother is Family history of congestive heart failure, Onset Age: 64 Grandparent Carcinoma of colon, Onset Age: 64 Father Hypertension, Onset Age: 63 Patient's father is Carcinoma of colon, Onset Age: 65 Family history of malignant neoplasm of bone Sibling Hypertension Other Diabetes mellitus Family history of coronary artery disease Social History Social History Smoking status: Never smoker Second hand tobacco smoke exposure: No Alcohol intake: current Substance use: never Substance use type: does not use Living arrangements: with family Occupation/Education: retired Gender identity (if verbalized by the patient): Female Sexual Orientation (if Verbalized by the Patient): Straight or Heterosexual Spiritual care concerns: No Exam Const: General: cooperative, healthy appearing, comfortable and no acute distress Nutritional Appearance: well nourished and obese Orientation/consciousness: patient oriented x3 Limitations: no limitations HENMT: Head: normal to inspection, No palpable skull fracture present and normocephalic Ears: hearing grossly normal bilaterally, external ears normal and TM's normal bilaterally Face and sinus: normal facial exam and sinuses nontender Mouth: Yes Normal oral and palatal mucosa present, Yes lip normal and Yes tongue normal Teeth and gingiva: dentition normal Eyes: General: appearance normal, both eyes and all related structures Visual Dominguez: normal visual dominguez by confrontation Alignment and Position: alignment normal Periorbital: periorbital findings normal Eyelids: eyelids normal Conjunctivae: conjunctivae normal Neck: Neck: normal visual inspection, full ROM and no lymphadenopathy Resp: Effort & Inspection: normal respiratory effort Auscultation: clear to auscultation bilaterally Cardio: Rate: regular rate Peripheral pulses: Peripheral pulses 2+ throughout Skin: General skin exam: normal color Wounds: wounds noted Other: patient has a superficial flap avulsion to the dorsal aspect of the left forearm, mid 1/3, without active bleeding. No palpable foreign body noted below the skin surface. No bony tenderness noted. Distal PMS intact Neuro: General: oriented to person, oriented to place, oriented to time, patient oriented x3, gait normal, tone normal, moves all extremities, no meningeal signs, no focal motor deficits and CN's II-XI intact bilaterally Extrem: General: normal to inspection Other: except as noted on integumentary exam Course Course Level of Care: Express Care Visit (14072) MDM - Wound/Laceration MDM Narrative Medical decision making narrative: plan to treat patient with tetanus vaccination, conservative wound care, follow-up with primary doctor with any healing concerns Differential Diagnosis Differential diagnosis: Likely laceration and avulsion of skin Discharge Plan Discharge Clinical Impression: Abrasion, Need for tetanus booster Patient Disposition: Home, Self-Care Condition: Stable Instructions: Antibiotic Form, Abrasion (ED) Additional Instructions: KEEP WOUND CLEAN AND DRY, FOLLOW UP WITH YOUR PRIMARY DOCTOR WITH ANY HEALING CONCERNS. Patient Language: Mozambican Prescriptions: No Action sumatriptan succinate 100 mg tablet 100 mg PO Q2-4H PRN (Reason: Headache) Qty: 30 2RF tramadol 50 mg tablet 50 mg PO Q6H PRN (Reason: pain) Qty: 30 0RF trazodone 100 mg tablet 100 mg PO HS meclizine 12.5 mg tablet 12.5 mg PO TID PRN (Reason: dizziness) Qty: 60 0RF bupropion HCl 300 mg tablet extended release 24 hr 300 mg PO QAM Qty: 1 0RF melatonin 5 mg Tablet 5 mg PO HS cholecalciferol (vitamin D3) [Vitamin D3] 125 mcg (5,000 unit) Tablet 125 mcg PO HS cariprazine 1.5 mg Capsule 1.5 mg PO DAILY ropinirole 3 mg tablet 3 mg PO BID Qty: 180 2RF montelukast [Singulair] 10 mg tablet 10 mg PO DAILY Qty: 90 2RF gabapentin 300 mg capsule 300 mg PO BID Qty: 180 2RF amlodipine 10 mg tablet 10 mg PO DAILY Qty: 90 2RF losartan 100 mg tablet 100 mg PO DAILY Qty: 90 2RF hydrochlorothiazide 12.5 mg capsule 12.5 mg PO DAILY Qty: 90 2RF escitalopram oxalate [Lexapro] 20 mg tablet 20 mg PO DAILY Qty: 90 2RF diclofenac sodium 25 mg tablet,delayed release (DR/EC) 25 mg PO BID Qty: 180 2RF rabeprazole 20 mg tablet,delayed release (DR/EC) 20 mg PO BID Qty: 180 2RF Follow-up/Referrals: Og Torres MD [Primary Care Provider] - Time of Disposition: 15:56
[2024-07-15] MEDS: TETANUS,DIPHTHERIA,AC PERTUSSIS ADULT (0.5 ML) BOOSTRIX IM (16:04)
== END 2024-07-15 16:12 | disposition home or self-care (01) ==
PROVIDERS: Emergency Provider Nurse Practitioner Family; PCP Family Medicine
DX: S50.812A Abrasion of left forearm, initial encounter (principal); W22.8XXA Striking against or struck by other objects, initial encounter; Z23 Encounter for immunization; K21.9 Gastro-esophageal reflux disease without esophagitis; I10 Essential (primary) hypertension; E78.00 Pure hypercholesterolemia, unspecified; F33.3 Major depressive disorder, recurrent, severe with psychotic symptoms
CPT/HCPCS: 90471; 90715; 99212; G0463

== ENCOUNTER 2024-11-21 09:32 | Outpatient (CLI) | payer MEDICARE, OTHER, SELFPAY ==
[2024-11-21 10:14] LABS: Hematocrit 42.8 % (37.0-47.0); Hemoglobin 13.4 g/dL (12.0-15.0); Mean Corpuscular HGB Conc 31.3 g/dl (32-36); Mean Corpuscular Hemoglobin 28.1 pg (26-34); Mean Corpuscular Volume 89.7 fl (80-100); Mean Platelet Volume 8.9 fl (7.4-10.4); Platelet Count Result 288 k/mm3 (150-375); Red Blood Count 4.77 M/mm3 (4.2-5.4); Red Cell Distribution Width 13.1 % (11.5-14.5); White Blood Count 6.7 K/mm3 (4.5-10.0)
--- OUTSIDE RECORDS SUMMARY | 2024-11-21 10:18 | XMS_ITS | Patient Health Record ---
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 Role Phone Og Torres MD Primary Care Provider Unavaila Angelito Love Unavailable [phone] Allergies Allergen (clinical drug ingredient) Drug/Non Drug Allergy documented on EMR Reaction Allergy Type Onset Date Status Vicodin Unknown Drug Allergy 10/12/2023 Active Reason For Referral No Information Medications Medication SIG (Take, Route, Frequency, Duration) Notes Start Date End Date Status Losartan Potassium 50 MG Oral 10/12/2023 Active amLODIPine Besylate 10 MG Oral 10/12/2023 Active hydroCHLOROthiazide 12.5 MG Oral 10/12/2023 Active Zolpidem Tartrate ER 12.5 MG 1 tablet every night Orally Once a day for 90 days stop zolpidem IR 10 mg daily 11/21/2024 Active Cyclobenzaprine HCl 5 MG Oral 10/12/2023 Active Vraylar 1.5 MG 1 capsule Oral Once a day for 90 days Active Meclizine HCl 12.5 MG Oral 10/12/2023 Active Escitalopram Oxalate 20 MG 1.5 tablets Oral Once a day for 90 days Active Requip 1 MG Oral *Reorder from [employer] for eRx and Interaction Alerts* 10/12/2023 Active traZODone HCl 100 MG 1.5 tablet every night Oral Once a day for 90 days Active buPROPion HCl ER (XL) 300 MG 1 tablet every morning Oral Once a day for 90 days Active traMADol HCl 50 MG Oral 10/12/2023 Active Immunizations Vaccine Route Administration Date Status Comme nts Influenza virus vaccine, quadrivalent (IIV4), split virus, 0.25 mL dosage Unknown 03/25/2019 Administered Influenza, high dose seasonal Unknown 07/02/2015 Admini stered Influenza, high dose seasonal Unknown 03/07/2018 Admini stered Influenza, high-dose seasona l, quadrivalent, preservative free >65 yrs Unknown 04/26/2020 Administered Novel [id number], preservative free Unknown 03/20/2017 Administered Pfizer [employer] Covid-19 Vac cine 2nd dose Unknown 08/16/2020 Administered Pfizer [employer] Covid-19 Vac cine 2nd dose Unknown 09/06/2020 Administered Social History Tobacco Use: Social History Observation Description Date Details (start date - stop date) Never Smoker NA - NA Sex Assigned At : Social History Observation Description Sex Assigned At Female Tobacco Control (Standard) Question Answer Notes Tobacco use: Nonsmoker Problems Problem Type SNOMED Code ICD Code Onset Dates Problem Status W/U Status Risk Notes Problem Morbid obesity (disorder) (163332166) Morbid (severe) obesity due to excess calories (E66.01) 4 Active confirmed Problem Severe recurrent major depression without psychotic features (15462042) Major depressive disorder, recurrent severe without psychotic features (F33.2) 4 Active confirmed Problem Generalized anxiety disorder (60403190) Generalized anxiety disorder (F41.1) 4 Active confirmed Problem Primary insomnia (7795376) Primary insomnia (F51.01) 4 Active confirmed Problem Generalized anxiety disorder (32339151) MARILY (generalized anxiety disorder) (F41.1) Active confirmed Problem [id number] Mild cognitive impairment (G31.84) Active confirmed Problem 01050181 Essential hypertension (I10) Active confirmed Vital Signs Heart Rate 75 /min 11/21/2024 160 Height-cm 157.51 cm 11/21/2024 160 Blood pressure diastolic 89 mm Hg 11/21/2024 160 Weight-kg 72.58 kg 11/21/2024 160 Height 62.01 in 11/21/2024 160 Blood pressure systolic 145 mm Hg 11/21/2024 160 Weight 160 lbs 11/21/2024 160 BMI 29.25 kg/m2 11/21/2024 160 Encounters Encounter Location Date Provider Diagnosis [facility] [address] [place] [address] [address] 01/11/2024 Angelito Son Major depressive disorder, recurrent severe without psychotic features F33.2 ; Primary insomnia F51.01 ; Morbid (severe) obesity due to excess calories E66.01 and Generalized anxiety disorder F41.1 [facility] [place] [address] [place] [address] 04/13/2024 Angelito Son Major depressive disorder, recurrent severe without psychotic features F33.2 ; Primary insomnia F51.01 ; Morbid (severe) obesity due to excess calories E66.01 ; Generalized anxiety disorder F41.1 and Mild cognitive impairment G31.84 [facility] [place] [address] [place] [address] 04/27/2024 Angelito Son Mild cognitive impairment G31.84 [facility] [place] [address] [place] [address] 05/25/2024 Angelito Son Major depressive disorder, recurrent severe without psychotic features F33.2 ; Primary insomnia F51.01 ; Morbid (severe) obesity due to excess calories E66.01 ; Generalized anxiety disorder F41.1 and Essential hypertension I10 [facility] [place] [address] [place] [address] 08/22/2024 Angelito Son MARILY (generalized anx iety disorder) F41.1 ; Major depressive disorder, recurrent severe without psychotic features F33.2 ; Encounter for screening for cardiovascular disorders Z13.6 ; Encounter for screening for depression Z13.31 ; Morbid (severe) obesity due to excess calories E66.01 ; Primary insomnia F51.01 ; Generalized anxiety disorder F41.1 and Essential hypertension I10 [facility] [place] [address] [place] [address] 11/21/2024 Angelito Son Major depressive disorder, recurrent severe without psychotic features F33.2 ; MARILY (generalized anxiety disorder) F41.1 ; Morbid (severe) obesity due to excess calories E66.01 ; Primary insomnia F51.01 ; Generalized anxiety disorder F41.1 ; Essential hypertension I10 ; Benign essential HTN I10 ; Dietary counseling and surveillance Z71.3 ; Encounter for screening for cardiovascular disorders Z13.6 and Negative depression screening Z13.31 [facility] [place] [address] [address] 04/14/2024 Angelito Cline Assessments Encounter Date Diagnosis (ICD Code) Assessment Notes Treatment Notes Treatment Clinical Notes Section Notes 01/11/2024 Major depressive disorder, recurrent severe without psychotic features (ICD-10 - F33.2) Major Depression - Assessment: The patient reports an improvement in mood and a better relationship with their mother after a recent conversation. The patient mentions trying to contain their bad moods, though sometimes it gets the best of them. - Plan: Continue current treatment with Bupropion XL 300mg daily, Escitalopram 20mg daily, and Rexulti 1.5mg daily for depression. Vraylar 1.5 mg po qd Insomnia - Assessment: The patient continues to experience difficulty sleeping, with some nights only getting 3 hours of sleep. They report being up and down all night long, especially when they have an appointment the next day. The patient is currently on Zolpidem 10mg, which cannot be increased. - Plan: Increase Trazodone from 100mg to 150mg (one and a half tablets) to help with sleep. Headaches - Assessment: The patient reports a recurrence of headaches after a period of absence. - Plan: Recommend the patient to follow up with their primary care provider for further evaluation and management. Restless Leg Syndrome - Assessment: The patient is currently on Ropinirole for restless leg syndrome, prescribed by their primary care provider. - Plan: No changes needed at this time. Family Relationships - Assessment: The patient reports improved communication with their mother after a confrontation about four months ago. They also mention better relationships with their son-in-law, grandson, son, and daughter. - Plan: Encourage the patient to continue open communication and seek support from family members. Education and Career Goals - Assessment: The patient's grandson is currently in school for coding and hopes to secure an waste hand that may lead to full-time employment. He has another semester or two left before completing his studies. - Plan: Encourage the patient to support their grandson's educational and career goals. 04/13/2024 Major depressive disorder, recurrent severe without psychotic features (ICD-10 - F33.2) Depression - Assessment: Patient reports mild improvement in depressive symptoms, with a depression score of 12, which is worse than the last visit. - Plan: - Continue current medications: Trazodone 150 mg, Vraylar 1.5 mg, Escitalopram 20 mg, and Bupropion 300 mg. - Reevaluate the effectiveness of the current medication regimen during the next visit. Insomnia - Assessment: Patient reports difficulty falling asleep and staying asleep, with an average of 5 hours of sleep per night. Patient goes to bed around 8 PM but usually doesn't fall asleep until 9 PM. Wakes up early (e.g., 3 AM) and cannot go back to sleep. - Plan: - No changes in medication at this time, as the patient has a history of falls and memory issues with previous medications. - Encourage the patient to maintain good sleep hygiene and consider non-pharmacolog ical interventions for sleep improvement. Anxiety - Assessment: Patient reports a decrease in anxiety and panic symptoms. - Plan: - No changes in medication at this time, as the patient is showing improvement. Memory Concerns - Assessment: Patient's SLUM score is 19, indicating potential memory issues. - Plan: - Order computer-based testing ([facility]) to further assess memory function. - Schedule a follow-up visit one week after the memory test to discuss results and potential interventions. General Health and Laboratory Tests - Assessment: It has been a long time since the patient's last blood work. - Plan: - Order the following tests: CBC, lipid panel, comprehensive metabolic panel, thyroid TSH with reflex, vitamin D, B12, and folate levels. - Tests to be done at [facility]. - Review lab results during the next visit and address any abnormalities. Follow-up - Plan: - Schedule a follow-up visit after the patient completes the memory test and receives the laboratory test results. - Reevaluate the patient's symptoms, medication regimen, and overall mental health during the next visit. Medication Management - Plan: - Continue current medications without changes. - Prescriptions to be sent to [facility] pharmacy. 04/27/2024 Mild cognitive impairment (ICD-10 - G31.84) 05/25/2024 Major depressive disorder, recurrent severe without psychotic features (ICD-10 - F33.2) Weight Gain and Sedentary Lifestyle - Assessment: Patient reports not doing any activities lately and sitting around. - Plan: - Encourage patient to engage in regular physical activity and consider incorporating light exercises into daily routine. - Discuss potential benefits of a balanced diet and portion control. Memory Testing - Assessment: Results within normal range, no functional decline observed. Previous SLUMS test in March showed a score of 19, which was mild. - Plan: - Retest in 6 months, possibly with a different testing method to assess multiple domains (7 or 8 different domains instead of 3). Insomnia - Assessment: Patient reports waking up too much throughout the night despite current medications. - Plan: - Discontinue regular zolpidem. - Prescribe zolpidem-ER (slow release) to help maintain sleep throughout the night. - Consider Belsomra if zolpidem-ER is not effective or covered by insurance. Depression - Plan: - Continue bupropion XL 300 mg daily. - Continue citalopram 20 mg daily. - Continue Vraylar 1.5 mg daily. Hypotension - Plan: - Monitor blood pressure and adjust medications as needed. Follow-up - Plan: - Schedule a follow-up appointment in 3 months to assess progress and make any necessary adjustments to treatment plan. Additional Medications - Plan: - Continue trazodone 150 mg. 08/22/2024 Major depressive disorder, recurrent severe without psychotic features (ICD-10 - F33.2) 08/22/2024 MARILY (generalized anxiety disorder) (ICD-10 - F41.1) 11/21/2024 Major depressive disorder, recurrent severe without psychotic features (ICD-10 - F33.2) Patient's depression is managed with bupropion and Lexapro. Continue current medication regimen. - Continue bupropion XL 300 mg in the morning. - Monitor depression symptoms and adjust treatment as needed. 11/21/2024 MARILY (generalized anxiety disorder) (ICD-10 - F41.1) Patient experiences heightened anxiety related to driving and daily activities. Consider increasing Lexapro dosage to manage anxiety symptoms. - Increase Lexapro to 30 mg daily to help manage anxiety. - Monitor anxiety symptoms and adjust treatment as needed. 11/21/2024 Morbid (severe) obesity due to excess calories (ICD-10 - E66.01) 08/22/2024 Encounter for screening for cardiovascular disorders (ICD-10 - Z13.6) 05/25/2024 Primary insomnia (ICD-10 - F51.01) Weight Gain and Sedentary Lifestyle - Assessment: Patient reports not doing any activities lately and sitting around. - Plan: - Encourage patient to engage in regular physical activity and consider incorporating light exercises into daily routine. - Discuss potential benefits of a balanced diet and portion control. Memory Testing - Assessment: Results within normal range, no functional decline observed. Previous SLUMS test in March showed a score of 19, which was mild. - Plan: - Retest in 6 months, possibly with a different testing method to assess multiple domains (7 or 8 different domains instead of 3). Insomnia - Assessment: Patient reports waking up too much throughout the night despite current medications. - Plan: - Discontinue regular zolpidem. - Prescribe zolpidem-ER (slow release) to help maintain sleep throughout the night. - Consider Belsomra if zolpidem-ER is not effective or covered by insurance. Depression - Plan: - Continue bupropion XL 300 mg daily. - Continue citalopram 20 mg daily. - Continue Vraylar 1.5 mg daily. Hypotension - Plan: - Monitor blood pressure and adjust medications as needed. Follow-up - Plan: - Schedule a follow-up appointment in 3 months to assess progress and make any necessary adjustments to treatment plan. Additional Medications - Plan: - Continue trazodone 150 mg. 04/13/2024 Primary insomnia (ICD-10 - F51.01) Depression - Assessment: Patient reports mild improvement in depressive symptoms, with a depression score of 12, which is worse than the last visit. - Plan: - Continue current medications: Trazodone 150 mg, Vraylar 1.5 mg, Escitalopram 20 mg, and Bupropion 300 mg. - Reevaluate the effectiveness of the current medication regimen during the next visit. Insomnia - Assessment: Patient reports difficulty falling asleep and staying asleep, with an average of 5 hours of sleep per night. Patient goes to bed around 8 PM but usually doesn't fall asleep until 9 PM. Wakes up early (e.g., 3 AM) and cannot go back to sleep. - Plan: - No changes in medication at this time, as the patient has a history of falls and memory issues with previous medications. - Encourage the patient to maintain good sleep hygiene and consider non-pharmacolog ical interventions for sleep improvement. Anxiety - Assessment: Patient reports a decrease in anxiety and panic symptoms. - Plan: - No changes in medication at this time, as the patient is showing improvement. Memory Concerns - Assessment: Patient's SLUM score is 19, indicating potential memory issues. - Plan: - Order computer-based testing ([facility]) to further assess memory function. - Schedule a follow-up visit one week after the memory test to discuss results and potential interventions. General Health and Laboratory Tests - Assessment: It has been a long time since the patient's last blood work. - Plan: - Order the following tests: CBC, lipid panel, comprehensive metabolic panel, thyroid TSH with reflex, vitamin D, B12, and folate levels. - Tests to be done at [facility]. - Review lab results during the next visit and address any abnormalities. Follow-up - Plan: - Schedule a follow-up visit after the patient completes the memory test and receives the laboratory test results. - Reevaluate the patient's symptoms, medication regimen, and overall mental health during the next visit. Medication Management - Plan: - Continue current medications without changes. - Prescriptions to be sent to [facility] pharmacy. 01/11/2024 Primary insomnia (ICD-10 - F51.01) Major Depression - Assessment: The patient reports an improvement in mood and a better relationship with their mother after a recent conversation. The patient mentions trying to contain their bad moods, though sometimes it gets the best of them. - Plan: Continue current treatment with Bupropion XL 300mg daily, Escitalopram 20mg daily, and Rexulti 1.5mg daily for depression. Vraylar 1.5 mg po qd Insomnia - Assessment: The patient continues to experience difficulty sleeping, with some nights only getting 3 hours of sleep. They report being up and down all night long, especially when they have an appointment the next day. The patient is currently on Zolpidem 10mg, which cannot be increased. - Plan: Increase Trazodone from 100mg to 150mg (one and a half tablets) to help with sleep. Headaches - Assessment: The patient reports a recurrence of headaches after a period of absence. - Plan: Recommend the patient to follow up with their primary care provider for further evaluation and management. Restless Leg Syndrome - Assessment: The patient is currently on Ropinirole for restless leg syndrome, prescribed by their primary care provider. - Plan: No changes needed at this time. Family Relationships - Assessment: The patient reports improved communication with their mother after a confrontation about four months ago. They also mention better relationships with their son-in-law, grandson, son, and daughter. - Plan: Encourage the patient to continue open communication and seek support from family members. Education and Career Goals - Assessment: The patient's grandson is currently in school for coding and hopes to secure an waste hand that may lead to full-time employment. He has another semester or two left before completing his studies. - Plan: Encourage the patient to support their grandson's educational and career goals. 04/13/2024 Morbid (severe) obesity due to excess calories (ICD-10 - E66.01) Depression - Assessment: Patient reports mild improvement in depressive symptoms, with a depression score of 12, which is worse than the last visit. - Plan: - Continue current medications: Trazodone 150 mg, Vraylar 1.5 mg, Escitalopram 20 mg, and Bupropion 300 mg. - Reevaluate the effectiveness of the current medication regimen during the next visit. Insomnia - Assessment: Patient reports difficulty falling asleep and staying asleep, with an average of 5 hours of sleep per night. Patient goes to bed around 8 PM but usually doesn't fall asleep until 9 PM. Wakes up early (e.g., 3 AM) and cannot go back to sleep. - Plan: - No changes in medication at this time, as the patient has a history of falls and memory issues with previous medications. - Encourage the patient to maintain good sleep hygiene and consider non-pharmacolog ical interventions for sleep improvement. Anxiety - Assessment: Patient reports a decrease in anxiety and panic symptoms. - Plan: - No changes in medication at this time, as the patient is showing improvement. Memory Concerns - Assessment: Patient's SLUM score is 19, indicating potential memory issues. - Plan: - Order computer-based testing ([facility]) to further assess memory function. - Schedule a follow-up visit one week after the memory test to discuss results and potential interventions. General Health and Laboratory Tests - Assessment: It has been a long time since the patient's last blood work. - Plan: - Order the following tests: CBC, lipid panel, comprehensive metabolic panel, thyroid TSH with reflex, vitamin D, B12, and folate levels. - Tests to be done at [facility]. - Review lab results during the next visit and address any abnormalities. Follow-up - Plan: - Schedule a follow-up visit after the patient completes the memory test and receives the laboratory test results. - Reevaluate the patient's symptoms, medication regimen, and overall mental health during the next visit. Medication Management - Plan: - Continue current medications without changes. - Prescriptions to be sent to [facility] pharmacy. 05/25/2024 Morbid (severe) obesity due to excess calories (ICD-10 - E66.01) Weight Gain and Sedentary Lifestyle - Assessment: Patient reports not doing any activities lately and sitting around. - Plan: - Encourage patient to engage in regular physical activity and consider incorporating light exercises into daily routine. - Discuss potential benefits of a balanced diet and portion control. Memory Testing - Assessment: Results within normal range, no functional decline observed. Previous SLUMS test in March showed a score of 19, which was mild. - Plan: - Retest in 6 months, possibly with a different testing method to assess multiple domains (7 or 8 different domains instead of 3). Insomnia - Assessment: Patient reports waking up too much throughout the night despite current medications. - Plan: - Discontinue regular zolpidem. - Prescribe zolpidem-ER (slow release) to help maintain sleep throughout the night. - Consider Belsomra if zolpidem-ER is not effective or covered by insurance. Depression - Plan: - Continue bupropion XL 300 mg daily. - Continue citalopram 20 mg daily. - Continue Vraylar 1.5 mg daily. Hypotension - Plan: - Monitor blood pressure and adjust medications as needed. Follow-up - Plan: - Schedule a follow-up appointment in 3 months to assess progress and make any necessary adjustments to treatment plan. Additional Medications - Plan: - Continue trazodone 150 mg. 08/22/2024 Encounter for screening for depression (ICD-10 - Z13.31) 11/21/2024 Primary insomnia (ICD-10 - F51.01) Patient struggles with insomnia, managed with Trazodone and Zolpidem. Continue current medication regimen. - Continue Trazodone 150 mg and Zolpidem 12.5 mg for insomnia. - Monitor sleep patterns and adjust treatment as needed. 01/11/2024 Morbid (severe) obesity due to excess calories (ICD-10 - E66.01) Major Depression - Assessment: The patient reports an improvement in mood and a better relationship with their mother after a recent conversation. The patient mentions trying to contain their bad moods, though sometimes it gets the best of them. - Plan: Continue current treatment with Bupropion XL 300mg daily, Escitalopram 20mg daily, and Rexulti 1.5mg daily for depression. Vraylar 1.5 mg po qd Insomnia - Assessment: The patient continues to experience difficulty sleeping, with some nights only getting 3 hours of sleep. They report being up and down all night long, especially when they have an appointment the next day. The patient is currently on Zolpidem 10mg, which cannot be increased. - Plan: Increase Trazodone from 100mg to 150mg (one and a half tablets) to help with sleep. Headaches - Assessment: The patient reports a recurrence of headaches after a period of absence. - Plan: Recommend the patient to follow up with their primary care provider for further evaluation and management. Restless Leg Syndrome - Assessment: The patient is currently on Ropinirole for restless leg syndrome, prescribed by their primary care provider. - Plan: No changes needed at this time. Family Relationships - Assessment: The patient reports improved communication with their mother after a confrontation about four months ago. They also mention better relationships with their son-in-law, grandson, son, and daughter. - Plan: Encourage the patient to continue open communication and seek support from family members. Education and Career Goals - Assessment: The patient's grandson is currently in school for coding and hopes to secure an waste hand that may lead to full-time employment. He has another semester or two left before completing his studies. - Plan: Encourage the patient to support their grandson's educational and career goals. 08/22/2024 Morbid (severe) obesity due to excess calories (ICD-10 - E66.01) 11/21/2024 Generalized anxiety disorder (ICD-10 - F41.1) 05/25/2024 Generalized anxiety disorder (ICD-10 - F41.1) Weight Gain and Sedentary Lifestyle - Assessment: Patient reports not doing any activities lately and sitting around. - Plan: - Encourage patient to engage in regular physical activity and consider incorporating light exercises into daily routine. - Discuss potential benefits of a balanced diet and portion control. Memory Testing - Assessment: Results within normal range, no functional decline observed. Previous SLUMS test in March showed a score of 19, which was mild. - Plan: - Retest in 6 months, possibly with a different testing method to assess multiple domains (7 or 8 different domains instead of 3). Insomnia - Assessment: Patient reports waking up too much throughout the night despite current medications. - Plan: - Discontinue regular zolpidem. - Prescribe zolpidem-ER (slow release) to help maintain sleep throughout the night. - Consider Belsomra if zolpidem-ER is not effective or covered by insurance. Depression - Plan: - Continue bupropion XL 300 mg daily. - Continue citalopram 20 mg daily. - Continue Vraylar 1.5 mg daily. Hypotension - Plan: - Monitor blood pressure and adjust medications as needed. Follow-up - Plan: - Schedule a follow-up appointment in 3 months to assess progress and make any necessary adjustments to treatment plan. Additional Medications - Plan: - Continue trazodone 150 mg. 01/11/2024 Generalized anxiety disorder (ICD-10 - F41.1) Major Depression - Assessment: The patient reports an improvement in mood and a better relationship with their mother after a recent conversation. The patient mentions trying to contain their bad moods, though sometimes it gets the best of them. - Plan: Continue current treatment with Bupropion XL 300mg daily, Escitalopram 20mg daily, and Rexulti 1.5mg daily for depression. Vraylar 1.5 mg po qd Insomnia - Assessment: The patient continues to experience difficulty sleeping, with some nights only getting 3 hours of sleep. They report being up and down all night long, especially when they have an appointment the next day. The patient is currently on Zolpidem 10mg, which cannot be increased. - Plan: Increase Trazodone from 100mg to 150mg (one and a half tablets) to help with sleep. Headaches - Assessment: The patient reports a recurrence of headaches after a period of absence. - Plan: Recommend the patient to follow up with their primary care provider for further evaluation and management. Restless Leg Syndrome - Assessment: The patient is currently on Ropinirole for restless leg syndrome, prescribed by their primary care provider. - Plan: No changes needed at this time. Family Relationships - Assessment: The patient reports improved communication with their mother after a confrontation about four months ago. They also mention better relationships with their son-in-law, grandson, son, and daughter. - Plan: Encourage the patient to continue open communication and seek support from family members. Education and Career Goals - Assessment: The patient's grandson is currently in school for coding and hopes to secure an waste hand that may lead to full-time employment. He has another semester or two left before completing his studies. - Plan: Encourage the patient to support their grandson's educational and career goals. 04/13/2024 Generalized anxiety disorder (ICD-10 - F41.1) Depression - Assessment: Patient reports mild improvement in depressive symptoms, with a depression score of 12, which is worse than the last visit. - Plan: - Continue current medications: Trazodone 150 mg, Vraylar 1.5 mg, Escitalopram 20 mg, and Bupropion 300 mg. - Reevaluate the effectiveness of the current medication regimen during the next visit. Insomnia - Assessment: Patient reports difficulty falling asleep and staying asleep, with an average of 5 hours of sleep per night. Patient goes to bed around 8 PM but usually doesn't fall asleep until 9 PM. Wakes up early (e.g., 3 AM) and cannot go back to sleep. - Plan: - No changes in medication at this time, as the patient has a history of falls and memory issues with previous medications. - Encourage the patient to maintain good sleep hygiene and consider non-pharmacolog ical interventions for sleep improvement. Anxiety - Assessment: Patient reports a decrease in anxiety and panic symptoms. - Plan: - No changes in medication at this time, as the patient is showing improvement. Memory Concerns - Assessment: Patient's SLUM score is 19, indicating potential memory issues. - Plan: - Order computer-based testing ([facility]) to further assess memory function. - Schedule a follow-up visit one week after the memory test to discuss results and potential interventions. General Health and Laboratory Tests - Assessment: It has been a long time since the patient's last blood work. - Plan: - Order the following tests: CBC, lipid panel, comprehensive metabolic panel, thyroid TSH with reflex, vitamin D, B12, and folate levels. - Tests to be done at [facility]. - Review lab results during the next visit and address any abnormalities. Follow-up - Plan: - Schedule a follow-up visit after the patient completes the memory test and receives the laboratory test results. - Reevaluate the patient's symptoms, medication regimen, and overall mental health during the next visit. Medication Management - Plan: - Continue current medications without changes. - Prescriptions to be sent to [facility]. 04/13/2024 Mild cognitive impairment (ICD-10 - G31.84) Depression - Assessment: Patient reports mild improvement in depressive symptoms, with a depression score of 12, which is worse than the last visit. - Plan: - Continue current medications: Trazodone 150 mg, Vraylar 1.5 mg, Escitalopram 20 mg, and Bupropion 300 mg. - Reevaluate the effectiveness of the current medication regimen during the next visit. Insomnia - Assessment: Patient reports difficulty falling asleep and staying asleep, with an average of 5 hours of sleep per night. Patient goes to bed around 8 PM but usually doesn't fall asleep until 9 PM. Wakes up early (e.g., 3 AM) and cannot go back to sleep. - Plan: - No changes in medication at this time, as the patient has a history of falls and memory issues with previous medications. - Encourage the patient to maintain good sleep hygiene and consider non-pharmacolog ical interventions for sleep improvement. Anxiety - Assessment: Patient reports a decrease in anxiety and panic symptoms. - Plan: - No changes in medication at this time, as the patient is showing improvement. Memory Concerns - Assessment: Patient's SLUM score is 19, indicating potential memory issues. - Plan: - Order computer-based testing ([facility]) to further assess memory function. - Schedule a follow-up visit one week after the memory test to discuss results and potential interventions. General Health and Laboratory Tests - Assessment: It has been a long time since the patient's last blood work. - Plan: - Order the following tests: CBC, lipid panel, comprehensive metabolic panel, thyroid TSH with reflex, vitamin D, B12, and folate levels. - Tests to be done at [facility]. - Review lab results during the next visit and address any abnormalities. Follow-up - Plan: - Schedule a follow-up visit after the patient completes the memory test and receives the laboratory test results. - Reevaluate the patient's symptoms, medication regimen, and overall mental health during the next visit. Medication Management - Plan: - Continue current medications without changes. - Prescriptions to be sent to [facility]. 05/25/2024 Essential hypertension (ICD-10 - I10) Weight Gain and Sedentary Lifestyle - Assessment: Patient reports not doing any activities lately and sitting around. - Plan: - Encourage patient to engage in regular physical activity and consider incorporating light exercises into daily routine. - Discuss potential benefits of a balanced diet and portion control. Memory Testing - Assessment: Results within normal range, no functional decline observed. Previous SLUMS test in March showed a score of 19, which was mild. - Plan: - Retest in 6 months, possibly with a different testing method to assess multiple domains (7 or 8 different domains instead of 3). Insomnia - Assessment: Patient reports waking up too much throughout the night despite current medications. - Plan: - Discontinue regular zolpidem. - Prescribe zolpidem-ER (slow release) to help maintain sleep throughout the night. - Consider Belsomra if zolpidem-ER is not effective or covered by insurance. Depression - Plan: - Continue bupropion XL 300 mg daily. - Continue citalopram 20 mg daily. - Continue Vraylar 1.5 mg daily. Hypotension - Plan: - Monitor blood pressure and adjust medications as needed. Follow-up - Plan: - Schedule a follow-up appointment in 3 months to assess progress and make any necessary adjustments to treatment plan. Additional Medications - Plan: - Continue trazodone 150 mg. 08/22/2024 Primary insomnia (ICD-10 - F51.01) 11/21/2024 Essential hypertension (ICD-10 - I10) 11/21/2024 Benign essential HTN (ICD-10 - I10) 08/22/2024 Generalized anxiety disorder (ICD-10 - F41.1) 11/21/2024 Dietary counseling and surveillance (ICD-10 - Z71.3) 08/22/2024 Essential hypertension (ICD-10 - I10) 11/21/2024 Encounter for screening for cardiovascular disorders (ICD-10 - Z13.6) 11/21/2024 Negative depression screening (ICD-10 - Z13.31) 08/22/2024 Other Major Depressive Disorder - Assessment: Patient reports mild ongoing depressive symptoms with a PHQ-9 score of 9, indicating mild depression. She denies any significant worsening of mood since the last visit 3 months ago. Recent stressors include adjusting to a new puppy in the household, which has been causing some frustration. Despite these challenges, the patient appears to be coping adequately with her current medication regimen. - Plan: - Continue bupropion XL 300 mg PO daily - Continue escitalopram 20 mg PO daily - Continue Vraylar 1.5 mg PO daily - Follow up in 3 months or sooner if symptoms worsen Insomnia - Assessment: Patient continues to experience sleep difficulties, managed with current medication regimen. No specific complaints or changes in sleep patterns were reported during this visit. - Plan: - Continue trazodone 100 mg PO at bedtime - Continue zolpidem ER 12.5 mg PO at bedtime - Advise patient to report any changes in sleep patterns or medication efficacy Hypertension - Assessment: Blood pressure measured at 118/80 mmHg, which is within normal limits. This suggests adequate control of hypertension with current management. - Plan: - Continue current antihypertensive regimen - Encourage regular blood pressure monitoring - Advise to report any significant changes in blood pressure readings Weight Management - Assessment: Patient expressed interest in weight loss medications such as Zepbound and Wegovy but does not meet the criteria for these treatments based on current weight and health status. - Plan: - Discuss healthy lifestyle and dietary habits to maintain current weight - Reassess interest and eligibility for weight loss medications in future visits Plan Of Treatment Future Test Test Name Order Date Thyroid Panel With TSH 04/13/2024 Vitamin B12 and Folate 04/13/2024 CBC With Differential/Platelet Vitamin D, 1,25 Dihydroxy 04/13/2024 Lipid Panel 04/13/2024 Comp. Metabolic Panel (14) 04/13/2024 MCI Testing 04/13/2024 Next Appt Details Provider Name:Angelito Cline , 02/22/2025 08:30:00 AM, [address], [address], [place], [address], Insurance Providers Payer Name Payer Address Payer Phone Subscriber Number Group Number Insured Name Patient Relationship to Insured Coverage Start Date Coverage End Date [employer] Medicare Replacemen t/Advantag e - Ppo [address] [address] [place] [address] [id number] ALEXI JONES Self - patient is the insured [address] [address] [place] [address] [id number] ALEXI JONES Self - patient is the insured Medical (General) History Medical History History ICD Code Problems: Compulsive gambling Generalized anxiety disorder Morbid obesity Obesity Obstructive sleep apnea syndrome Osteoarthritis 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
--- OUTSIDE RECORDS SUMMARY | 2024-11-21 10:18 | XMS_ITS | Clinical Summary ---
Author Organization [facility] Address [address] [facility] [address] [place] [address] Phone Care Team Providers Care Brine Supervisor Name Role Phone Og Torres MD Primary [...] (Adult) (1 - 1-dose 75+ series) 10/26/2027 Hepatitis B Immunization Aged Out No longer eligible based on patient's age to complete this topic Meningococcal Immunization (ACWY) Aged Out No longer eligible based on patient's age to complete this topic Rotavirus Immunization Aged Out No lo nger eligible based on patient's age to complete this topic Procedures Procedure Name Priority Date/Time Associated Diagnosis Comments HM COLONOSCOPY Routine 12/29/2018 from Last 3 Months or Most Recently Relevant to Health Maintenance Results * COLONOSCOPY (12/29/2018) Velasquez Bonilla DO PROCEDURE/MINOR SURGICAL ORDERA BLES Edited Result - Final from Last 3 Months or Most Recently Relevant to Health Maintenance Insurance MEDICARE C [facility] Care Teams Brine Supervisor Relationship Specialty Start Date End Date Og Torres MD [address] [place] [address] PCP - General Family Medicine 11/12/18
--- OUTSIDE RECORDS SUMMARY | 2024-11-21 10:18 | XMS_ITS | Clinical Summary ---
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 Active rOPINIRole (REQUIP) 2 mg [...] (01/03/2019): Added automatically from request for surgery [id number] Rotator cuff arthropathy, right 08/31/2018 Overview (08/31/2018): Added automatically from request for surgery [id number] Biceps tendinitis on right 08/31/2018 Overview (08/31/2018): Added automatically from request for surgery [id number] Surgical History Surgery Date Site/Laterality Comments OTHER [...] on file Legal Sex Female 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 Gender Identity Not on file Sexual Orientation Not on file Obstetrics History Last Filed Vital Signs Vital Sign Reading Time Taken Comments Blood Pressure 165/83 11/02/2019 9:27 AM CDT Pulse 84 11/02/2019 9:27 AM CDT Temperature 36.7 C (98 F) 01/20/2019 11:20 AM CDT Respiratory Rate 22 01/20/2019 11:20 AM CDT Oxygen Saturation 98% 01/20/2019 11:20 AM CDT Inhaled Oxygen Concentration - - Weight 72.6 kg (160 lb) 11/02/2019 9:27 AM CDT Height 157.5 cm (5' 2) 11/02/2019 9:27 AM CDT Body Mass Index 29.26 11/02/2019 9:27 AM CDT Plan of Treatment Not on file Medical Devices Implanted Type Area Weatherstrip Machine Operator Device Identifier Shelf Expiration Date Model / Serial / Lot [employer]ech 320-15-05 Equinoxe Lock Reverse Shoulder Glenosphere Screw Bone - [id number] - [id number] Implanted:Qty: 1 on 09/21/2018 by Mateo Calle MD at [facility] Right: Shoulder [employer] 08/12/2023 320-15-05 / [id number] / [employer]ech 320-15- Equinoxe Reverse Shoulder Standard Plate Glenoid - [id number] - [id number] Implanted:Qty: 1 on 09/21/2018 by Mateo Calle MD at [facility] Right: Shoulder [employer] 08/11/2028 320-15- / [id number] / [employer] 320-20-00 Reverse Torque Define Shoulder Kit Screw - [id number] - [id number] Implanted:Qty: 1 on 09/21/2018 by Mateo Calle MD at [facility] Right: Shoulder [employer] 08/18/2023 320-20-00 / [id number] / Equinoxe Humeral Stem Primary, Press-Fit Implanted:Qty: 1 on 09/21/2018 by Mateo Calle MD at [facility] Right: Shoulder [employer]ech [id number] 08/11/2028 300-01-12 / [id number] / [employer] 320-01-38 38mm Glenosphere Reverse Shoulder Component Glenoid - [id number] - [id number] Implanted:Qty: 1 on 09/21/2018 by Mateo Calle MD at [facility] Right: Shoulder [employer] 08/11/2028 320--38 / [id number] / [employer] 320-20-42 Equinoxe 4.5mm 42mm Kit Compression Lock Cap Reverse Shoulder - [id number] - [id number] Implanted:Qty: 1 on 09/21/2018 by Mateo Calle MD at [facility] Right: Shoulder [employer] 07/27/2022 320-20-42 / [id number] / [employer] 320-20-26 Equinoxe 4.5mm 26mm Kit Compression Lock Cap Reverse Shoulder - [id number] - [id number] Implanted:Qty: 1 on 09/21/2018 by Mateo Calle MD at [facility] Right: Shoulder [employer] 08/01/2023 320-20-26 / [id number] / [employer] 320-10-00 Equinoxe Reverse Shoulder +0mm Tray Humeral Adapter - [id number] - [id number] Implanted:Qty: 1 on 09/21/2018 by Mateo Calle MD at [facility] Right: Shoulder [employer] 05/30/2028 320-10-00 / [id number] / [employer] 320-38-00 Equinoxe 38mm Reverse Shoulder +0mm Liner Humeral - [id number] - [id number] Implanted:Qty: 1 on 09/21/2018 by Mateo Calle MD at [facility] Right: Shoulder [employer] 08/05/2023 320-38-00 / [id number] / [employer] 5536-B-400 Triathlon Coated Knee 4 Baseplate Tibial Tritanium Sterile - [id number] Implanted:Qty: 1 on 01/19/2019 by Mateo Calle MD at [facility] Right: Knee [employer] 10/08/2023 5536-B-40 0 / / [id number] [employer] 5517-F-402 Triathlon Cruciate Retain Bead Knee Right 4 Component Femoral Pa - [id number] Implanted:Qty: 1 on 01/19/2019 by Mateo Calle MD at [facility] Right: Knee [employer] 08/05/2021 5517-F-40 2 / / [id number] [employer] 5531-G-409 Triathlon 9mm Cruciate Substitute Knee 4 Insert Tibial X3 - [id number] Implanted:Qty: 1 on 01/19/2019 by Mateo Calle MD at [facility] Right: Knee [employer] 04/19/2023 5531-G-40 9 / [id number] Insurance [employer] [place] [address] [employer] MEDICARE PPO Advance Directives For more information, please contact: [phone] * Full Code (Latest Code Status on File) Date Activated Date Inactivated Comments 01/19/2019 12:02 PM 01/20/2019 9:21 PM * Full Code Date Activated Date Inactivated Comments 09/21/2018 7:22 PM 09/22/2018 6:16 PM Care Teams Mess Attendant Crew Relationship Specialty Start Date End Date Og Torres MD [address] [facility] [address] [place] [address] PCP - General Family Medicine 08/20/18
--- OUTSIDE RECORDS SUMMARY | 2024-11-21 10:19 | XMS_ITS ---
Author Organization [facility] Address [address] [facility] [address] [place] [address] Care Team Providers Care Coding Team Lead Name Role Phone Og Torres MD Primary Care Provider Unavaila Angelito Love Unavailable [phone] Allergies Allergen (clinical drug ingredient) Drug/Non Drug Allergy documented on EMR Reaction Allergy Type Onset Date Status Vicodin Unknown Drug Allergy 10/12/2023 Active REASON FOR VISIT 3 month f/u Medications Medication SIG (Take, Route, Frequency, Duration) Notes Start Date End Date Status Zolpidem Tartrate ER 12.5 MG 1 tablet every night Orally Once a day for 90 days stop zolpidem IR 10 mg daily 11/21/2024 Active Vraylar 1.5 MG 1 capsule Oral Once a day for 90 days Active Escitalopram Oxalate 20 MG 1.5 tablets Oral Once a day for 90 days Active traZODone HCl 100 MG 1.5 tablet every night Oral Once a day for 90 days Active buPROPion HCl ER (XL) 300 MG 1 tablet every morning Oral Once a day for 90 days Active Losartan Potassium 50 MG Oral 10/12/2023 Active amLODIPine Besylate 10 MG Oral 10/12/2023 Active hydroCHLOROthiazide 12.5 MG Oral 10/12/2023 Active traMADol HCl 50 MG Oral 10/12/2023 Active Cyclobenzaprine HCl 5 MG Oral 10/12/2023 Active Meclizine HCl 12.5 MG Oral 10/12/2023 Active Requip 1 MG Oral *Reorder from [facility] for eRx and Interaction Alerts* 10/12/2023 Active Social History Tobacco Use: Social History Observation Description Date Details (start date - stop date) Never Smoker NA - NA Sex Assigned At : Social History Observation Description Sex Assigned At Female Tobacco Control (Standard) Question Answer Notes Tobacco use: Nonsmoker Vital Signs Blood pressure systolic 145 mm Hg 11/22/19 25 Blood pressure diastolic 89 mm Hg 025 Heart Rate 75 /min 11/21/2024 Height 62.01 in 11/21/2024 Weight 160 lbs 11/21/2024 BMI 29.25 kg/m2 11/21/2024 Height-cm 157.51 cm 11/21/2024 Weight-kg 72.58 kg 11/21/2024 160 Encounters Encounter Location Date Provider Diagnosis [facility] [address] [place] [address] [place] [address] 11/21/2024 Angelito Jama Major depressive disorder, recurrent severe without psychotic features F33.2 ; MARILY (generalized anxiety disorder) F41.1 ; Morbid (severe) obesity due to excess calories E66.01 ; Primary insomnia F51.01 ; Generalized anxiety disorder F41.1 ; Essential hypertension I10 ; Benign essential HTN I10 ; Dietary counseling and surveillance Z71.3 ; Encounter for screening for cardiovascular disorders Z13.6 and Negative depression screening Z13.31 Assessments Encounter Date Diagnosis (ICD Code) Assessment Notes Treatment Notes Treatment Clinical Notes Section Notes 11/21/2024 Major depressive disorder, recurrent severe without [...] to excess calories (ICD-10 - E66.01) 11/21/2024 Primary insomnia (ICD-10 - F51.01) Patient struggles with insomnia, managed with Trazodone and Zolpidem. Continue current medication regimen. - Continue Trazodone 150 mg and Zolpidem 12.5 mg for insomnia. - Monitor sleep patterns and adjust treatment as needed. 11/21/2024 Generalized anxiety disorder (ICD-10 - F41.1) 11/21/2024 Essential hypertension (ICD-10 - I10) 11/21/2024 Benign essential HTN (ICD-10 - I10) 11/21/2024 Dietary counseling and surveillance (ICD-10 - Z71.3) 11/21/2024 Encounter for screening for cardiovascular disorders (ICD-10 - Z13.6) 11/21/2024 Negative depression screening (ICD-10 - Z13.31) Plan Of Treatment Medication Medication Name Sig Start Date Stop Date Notes Zolpidem Tartrate ER 12.5 MG 1 tablet every night Orally Once a day for 90 days 11/21/2024 stop zolpidem IR 10 mg daily Vraylar 1.5 MG 1 capsule Oral Once a day for 90 days Escitalopram Oxalate 20 MG 1.5 tablets Oral Once a day for 90 days traZODone HCl 100 MG 1.5 tablet every night Oral Once a day for 90 days buPROPion HCl ER (XL) 300 MG 1 tablet every morning Oral Once a day for 90 days Next Appt Details Follow Up: 3 Months, Reason: Provider Name:Angelito Jama , 02/22/2025 08:30:00 AM, [address] [place] [address] [address], [facility] [address], [address], Progress Notes * ALEXI JONES MDOB:1950 (74 yo F)Acc No.[id number]:11/21/2024 Patient: ALEXI LAY Provider: Vincent JAMA MD :1950 A ge:74 Y S ex:Female Date:11/21/2024 Address:[address] [place] [address] [id number] Pcp:Og Torres MD Subjective: * Chief Complaints: * 3 month f/u * HPI: D epression Screening: MARILY-7 (2018 Edition) F eeling nervous, anxious, or on edge N ot at all N ot being able to stop or control worrying?Several days W orrying too much about different things S everal days T rouble relaxing N ot at all B eing so restless that it is hard to sit still N ot at all B ecoming easily annoyed or irritable N ot at all F eeling afraid as if something awful might happen N ot at all I f you checked any problems, how difficult have they made it for you to do your work, take care of things at home, or get along with other people? N ot difficult at all [place]-Suicide Severity Rating Scale: Suicide Risk (CSRS-screener) i n the past one month Have you wished you were or wished you could go to sleep and not wake up? N o i n the past one month Have you actually had any thoughts of killing yourself? N o H ave you ever done anything, started to do anything, or prepared to do anything to end your life? N o D epression screening: PHQ-9 L ittle interest or pleasure in doing things?Not at all F eeling down, depressed, or hopeless S everal days T rouble falling or staying asleep, or sleeping too much S everal days F eeling tired or having little energy S everal days P oor appetite or overeating S everal days F eeling bad about yourself or that you are a failure, or have let yourself or your family down N ot at all T rouble concentrating on things, such as reading the newspaper or watching television N ot at all M oving or speaking so slowly that other people could have noticed; or the opposite, being so fidgety or restless that you have been moving around a lot more than usual N ot at all T houghts that you would be better off or of hurting yourself in some way N ot at all Intervention D epression Screening Findings N egative F ollow-Up for Depression P sychiatric follow-up S uicide Risk Assessment Performed 0 11/21/2024 - date F unctional Status: Functional Status Assessment F all Risk Assessment: N o falls in the past year H istory of Presenting Problem: Elevated or Hypertensive blood pressure reading MIPS diagnosis of HTN. c/o Anxiety. Depression screening done advance care planning discuss Alexi Jones is a 74-year-old female who reports experiencing significant anxiety, particularly related to driving her new SUV. She feels boxed in and paranoid while driving, which has led to avoidance behaviors. She also mentions feeling overwhelmed by the responsibility of dog-sitting, which adds to her anxiety. Alexi describes a persistent feeling of paranoia throughout the day, as if something bad is going to happen. She has been managing her depression with bupropion and Lexapro, but her anxiety remains a concern. Alexi also struggles with primary insomnia, for which she takes Trazodone and Zolpidem. Despite these challenges, she enjoys spending time with her grandchildren and recently had a fun weekend with them, which provided some relief from her usual stressors. * ROS: P sychiatric: Admits A nxiety. P atient not eligible due to active diagnosis of hypertension: G 9744. * Medical History: * Surgical History: * Hospitalization/Major Diagno stic Procedure: * Social History: T obacco Use: T obacco Control (Standard) T obacco use: N onsmoker M igrated Social History: M igrated Social History: Alcohol Intake: None 07/01/2018,Tobacco Years: Never smoker 07/01/2018. * Medications: T akingRequip 1 MG Tablet Oral , Notes to Pharmacist: *[facility]*Meclizine HCl 12.5 MG Tablet Oral Cyclobenzaprine HCl 5 MG Tablet Oral hydroCHLOROthiazide 12.5 MG Capsule Oral amLODIPine Besylate 10 MG Tablet Oral Losartan Potassium 50 MG Tablet Oral traMADol HCl 50 MG Tablet Oral buPROPion HCl ER (XL) 300 MG Tablet Extended Release 24 Hour 1 tablet every morning Oral Once a day traZODone HCl 100 MG Tablet 1.5 tablet every night Oral Once a day Escitalopram Oxalate 20 MG Tablet 1 tablet Oral Once a day Vraylar 1.5 MG Capsule 1 capsule Oral Once a day Zolpidem Tartrate ER 12.5 MG Tablet Extended Release 1 tablet every night Orally Once a day , Notes to Pharmacist: stop zolpidem IR 10 mg dailyTaking Requip 1 MG Tablet Oral , Notes to Pharmacist: *Reorder from [facility] for eRx and Interaction Alerts*Taking Meclizine HCl 12.5 MG Tablet Oral Taking Cyclobenzaprine HCl 5 MG Tablet Oral Taking hydroCHLOROthiazide 12.5 MG Capsule Oral Taking amLODIPine Besylate 10 MG Tablet Oral Taking Losartan Potassium 50 MG Tablet Oral Taking traMADol HCl 50 MG Tablet Oral Taking buPROPion HCl ER (XL) 300 MG Tablet Extended Release 24 Hour 1 tablet every morning Oral Once a day Taking traZODone HCl 100 MG Tablet 1.5 tablet every night Oral Once a day Taking Escitalopram Oxalate 20 MG Tablet 1 tablet Oral Once a day Taking Vraylar 1.5 MG Capsule 1 capsule Oral Once a day Taking Zolpidem Tartrate ER 12.5 MG Tablet Extended Release 1 tablet every night Orally Once a day , Notes to Pharmacist: stop zolpidem IR 10 mg dailyDiscontinuedProAir HFA 108 (90 Base) MCG/ACT Aerosol Solution Inhalation Medication List reviewed and reconciled with the patientDiscontinued ProAir HFA 108 (90 Base) MCG/ACT Aerosol Solution Inhalation Medication List reviewed and reconciled with the patient * Allergies: V icodin: Allergy - Onset Date 10/12/2023no[Allergies Verified] Objective: * Vitals: B P:145/89mm Hg, HR:75/min, Wt:160lbs, Wt-k.58 kg, Ht: 62.01 in, Ht-cm: 157.51 cm, BMI:29.25Index, Body Surface Area: 1.78. 160. * Examination: P sychiatry: Appearance: w ell-groomed, well-nourished, .... Affect / mood: a ppropriate, full range. Attention: g ood. Attitude: c ooperative. Suicidal ideation: n one. Memory status: n o impairment noted. Degree of awareness of surroundings: w ithin normal limits.? Delusions: n o. Hallucinations: n o. Insight: g ood. Intellectual functioning: n o impairment noted. Judgement: g ood. Orientation: a wake, alert and oriented x 3. Perceptual disorders: n o perceptual disorder noted. Psychomotor activity: w ithin normal range. Speech / language: a ppropriate pitch/modulation, clear and coherent, normal rate, volume, and articulation (RVR), proper grammar used. Thought content: a ppropriate. Thought process: i ntact. e lderly white female, look younger than her age, no memory impairment noticed. Assessment: * Assessment: 1. M ajor depressive disorder, recurrent severe without psychotic features - F33.2 (Primary)? 2. G AD (generalized anxiety disorder) - F41.1 3 . M orbid (severe) obesity due to excess calories - E66.01 4 . P rimary insomnia - F51.01 5. G eneralized anxiety disorder - F41.1 6 . E ssential hypertension - I10 7 . B enign essential HTN - I10 8 . D ietary counseling and surveillance - Z71.3 9 . E ncounter for screening for cardiovascular disorders - Z13.6 1 0. N egative depression screening - Z13.31 ? Plan: * Treatment: 2. G AD (generalized anxiety disorder) Clinical Notes: Patient experiences heightened anxiety related to driving and daily activities. Consider increasing Lexapro dosage to manage anxiety symptoms. - Increase Lexapro to 30 mg daily to help manage anxiety. - Monitor anxiety symptoms and adjust treatment as needed. 3. P rimary insomnia Refill traZODone HCl Tablet, 100 MG, 1.5 tablet every night, Oral, Once a day, 90 days, 135 Tablet, Refills 0; S tart Zolpidem Tartrate ER Tablet Extended Release, 12.5 MG, 1 tablet every night, Orally, Once a day, 90 days, 90 Tablet, Refills 0, Notes to Pharmacist: stop zolpidem IR 10 mg daily. Clinical Notes: Patient struggles with insomnia, managed with Trazodone and Zolpidem. Continue current medication regimen. - Continue Trazodone 150 mg and Zolpidem 12.5 mg for insomnia. - Monitor sleep patterns and adjust treatment as needed. * Procedure Codes: 1 123F ACP DISCUSS/DSCN MKR [id number] BEHAV ASSMT W/SCORE & DOCD/STAND [id number] TOBACCO [id number] PREHTN/HTN BP DOC INDCD F/U [id number] Pt not kevyn d/t act dig [id number] MOST RECENT SYSTOLIC BP >= 140MM [id number] NEG SCR D PT NOT ELIG F/U/PLN DOC * Preventive Medicine: Counseling: B P Management: FIRST HYPERTENSIVE BP READING FOLLOW-UP PLAN: F ollow-up 1 month Follow up with your PCP LIFESTYLE RECOMMENDATION: L ifestyle education REFERRAL TO ALTERNATIVE / PRIMARY CARE PROVIDER: R eferral to general medical service WEIGHT REDUCTION RECOMMENDATION: W eight-reducing diet education DIETARY RECOMMENDATIONS: D iet education Dietary Healthy-Heart Diet A dvance Care Planning Date of last Advance Care Planning:?11/21/2024 ____ MIPS Type of advance care directives: D iscussed with patient , does not have AD,Living Will Screenings: F all risk screening Fall Risk Assessment: N o falls in the past year D epression screening Have you had a recent depression screening? Y es * Follow Up: 3 Months * Billing Information: * Visit Code: 23363 OFFICE OUTPATIENT VISIT 25 MINUTES DETAILED HISTORY AND EXAM/MODERATE MEDICAL DECISION MAKING. * Procedure Codes: 1123F ACP DISCUSS/DSCN MKR DOCD. 73460 BEHAV ASSMT W/SCORE & DOCD/STAND INSTRUMENT. 1036F TOBACCO NON-USER. G8950 PREHTN/HTN BP DOC INDCD F/U DOC. G9744 Pt not kevyn d/t act dig htn. G8753 MOST RECENT SYSTOLIC BP >= 140MM HG. G8510 NEG SCR D PT NOT ELIG F/U/PLN DOC. * Sign off status: Completed true * Provider: Vincent JAMA MD Date: 0 11/21/2024 Generated for Levon malik/Vasiliy/Argenis on: 0 11/21/2024 10:18 AM CDT History and Physical Notes * HPI (History of Present Illness) Category Sub-Category Detail Notes Category Not es History of Presenting Problem Anxiety Depression screening done advance care planning discuss Alexi Jones is a 74-year-old female who reports experiencing significant anxiety, particularly related to driving her new SUV. She feels boxed in and paranoid while driving, which has led to avoidance behaviors. She also mentions feeling overwhelmed by the responsibility of dog-sitting, which adds to her anxiety. Alexi describes a persistent feeling of paranoia throughout the day, as if something bad is going to happen. She has been managing her depression with bupropion and Lexapro, but her anxiety remains a concern. Alexi also struggles with primary insomnia, for which she takes Trazodone and Zolpidem. Despite these challenges, she enjoys spending time with her grandchildren and recently had a fun weekend with them, which provided some relief from her usual stressors. Depression screening PHQ-9 Little interest or pleasure in doing things: Not at all Feeling down, depressed, or hopeless: Se veral days Trouble falling or staying asleep, or sl eeping too much: Several days Feeling tired or having little energy: S everal days Poor appetite or overeating: Several day s Feeling bad about yourself o r that you are a failure, or have let yourself or your family down: Not at all Trouble concentrating on thi ngs, such as reading the newspaper or watching television: Not at all Moving or speaking so slowly that other people could have noticed; or the opposite, being so fidgety or restless that you have been moving around a lot more than usual: Not at all Thoughts that you would be b lyndsey off or of hurting yourself in some way: Not at all Intervention Depression Screening Findings: N egative Follow-Up for Depression: Psychiatric fo llow-up Suicide Risk Assessment Performed: 11/21 - date Functional Status Functional Status Assessment F all Risk Assessment:: No falls in the past year Depression Screening MARILY-7 (2018 Edition) Feelin g nervous, anxious, or on edge: Not at all Not being able to stop or control worryi ng: Several days Worrying too much about different things : Several days Trouble relaxing: Not at all Being so restless that it is hard to sit still: Not at all Becoming easily annoyed or irritable: No t at all Feeling afraid as if something awful alireza ht happen: Not at all If you checked any problems, how difficult have they made it for you to do your work, take care of things at home, or get along with other people?: Not difficult at all [place]-Suicide Severity Rating Scale Suicide Risk (CSRS-screener) in the past one month Have you wished you were or wished you could go to sleep and not wake up?: No in the past one month Have y ou actually had any thoughts of killing yourself?: No Have you ever done anything, started to do anything, or prepared to do anything to end your life?: No Examination Category Sub-Category Detail Notes Category Not es Psychiatry Appearance: well-groomed, well-nourished , ... elderly white female, look younger than her age, no memory impairment noticed Attitude: cooperative Psychomotor activity: within normal rang e Attention: good Degree of awareness of surroundings: wit hin normal limits Orientation: awake, alert and shoaib ented x 3 Affect / mood: appropriate, full ra nge Speech / language: appropriate pitch/mo dulation, clear and coherent, normal rate, volume, and articulation (RVR), proper grammar used Insight: good Judgement: good Thought process: intact Thought content: appropriate Perceptual disorders: no perceptual diso rder noted Suicidal ideation: none Intellectual functioning: no impairment noted Memory status: no impairment noted Delusions: no Hallucinations: no
--- OUTSIDE RECORDS SUMMARY | 2024-11-21 10:19 | XMS_ITS | Referral Summary ---
Author Organization 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 Active rOPINIRole (REQUIP) 2 mg [...] (01/03/2019): Added automatically from request for surgery [id number] Rotator cuff arthropathy, right 08/31/2018 Overview (08/31/2018): Added automatically from request for surgery [id number] Biceps tendinitis on right 08/31/2018 Overview (08/31/2018): Added automatically from request for surgery [id number] Social History Tobacco Use Types Packs/Day Years Used Date Smoking Tobacco: Never Smokeless Tobacco: Never Alcohol Use Standard Drinks/Week Comments No 0 (1 standard drink = 0.6 oz pur e alcohol) PHQ-2 Answer Date Recorded PHQ-2 Score 2 02/05/2019 Comments No Sex and Gender Information Value Date Recorded Sex Assigned at Not on file 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 Gender Identity Not on file Sexual Orientation [...] on file Medical Devices Implanted Type Area Recycler Device Identifier Shelf Expiration Date Model / Serial / Lot [employer] 320-15-05 Equinoxe Lock Reverse Shoulder Glenosphere Screw Bone - [id number] - [id number] Implanted:Qty: 1 on 09/21/2018 by Mateo Calle MD at [facility] Right: Shoulder [employer] 08/12/2023 320-15-05 / [id number] / [employer] 320-15- Equinoxe Reverse Shoulder Standard Plate Glenoid - [id number] - [id number] Implanted:Qty: 1 on 09/21/2018 by Mateo Calle MD at [facility] Right: Shoulder [employer] 08/11/2028 320-15- / [id number] / [employer] 320-20-00 Reverse Torque Define Shoulder Kit Screw - [id number] - [id number] Implanted:Qty: 1 on 09/21/2018 by Mateo Calle MD at [facility] Right: Shoulder [employer] 08/18/2023 320-20-00 / [id number] / Equinoxe Humeral Stem Primary, Press-Fit Implanted:Qty: 1 on 09/21/2018 by Mateo Calle MD at [facility] Right: Shoulder [employer] [id number] 08/11/2028 300-01-12 / [id number] / [employer] 320-01-38 38mm Glenosphere Reverse Shoulder Component Glenoid - [id number] - [id number] Implanted:Qty: 1 on 09/21/2018 by Mateo Calle MD at [facility] Right: Shoulder [employer] 08/11/2028 320-01-38 / [id number] / [employer] 320-20-42 Equinoxe 4.5mm 42mm Kit Compression Lock Cap Reverse Shoulder - [id number] - [id number] Implanted:Qty: 1 on 09/21/2018 by Mateo Calle MD at [facility] Right: Shoulder [employer] 07/27/2022 320-20-42 / [id number] / [employer] 320-20-26 Equinoxe 4.5mm 26mm Kit Compression Lock Cap Reverse Shoulder - [id number] - [id number] Implanted:Qty: 1 on 09/21/2018 by Mateo Calle MD at [facility] Right: Shoulder [employer] 08/01/2023 320-20-26 / [id number] / [employer] 320-10-00 Equinoxe Reverse Shoulder +0mm Tray Humeral Adapter - [id number] - [id number] Implanted:Qty: 1 on 09/21/2018 by Mateo Calle MD at [facility] Right: Shoulder [employer] 05/30/2028 320-10-00 / [id number] / [employer] 320-38-00 Equinoxe 38mm Reverse Shoulder +0mm Liner Humeral - [id number] - [id number] Implanted:Qty: 1 on 09/21/2018 by Mateo Calle MD at [facility] Right: Shoulder [employer] 08/05/2023 320-38-00 / [id number] / [employer] 5536-B-400 Triathlon Coated Knee 4 Baseplate Tibial Tritanium Sterile - [id number] Implanted:Qty: 1 on 01/19/2019 by Mateo Calle MD at [facility] Right: Knee [employer] 10/08/2023 5536-B-40 0 / / [id number] [employer] 5517-F-402 Triathlon Cruciate Retain Bead Knee Right 4 Component Femoral Pa - [id number] Implanted:Qty: 1 on 01/19/2019 by Mateo Calle MD at [facility] Right: Knee [employer] 08/05/2021 5517-F-40 2 / / [id number] [employer] 5531-G-409 Triathlon 9mm Cruciate Substitute Knee 4 Insert Tibial X3 - [id number] Implanted:Qty: 1 on 01/19/2019 by Mateo Calle MD at [facility] Right: Knee [employer] 04/19/2023 5531-G-40 9 / / [id number] Insurance [employer] [place] [address] [employer] PPO Advance Directives For more information, please contact: [phone] * Full Code (Latest Code Status on File) Date Activated Date Inactivated Comments 01/19/2019 12:02 PM 01/20/2019 9:21 PM * Full Code Date Activated Date Inactivated Comments 09/21/2018 7:22 PM 09/22/2018 6:16 PM Care Teams Lab Tester Relationship Specialty Start Date End Date Og Torres MD [address] [facility] [address] [place] [address] PCP - General Family Medicine 08/20/18
[2024-11-21 10:30] LABS: Add Urine Microscopic? YES; Appearance Urine Clear (Clear); Bacteria Urine None Seen /hpf; Bilirubin Urine Negative (Negative); Blood Urine Negative (Negative); Color Urine Yellow (Yellow); Glucose Urine UA Negative (Negative); Ketones Urine Negative (Negative); Leukocyte Esterase Ur 1+ LEU/UL (Negative); Need Manual Microscopic Reviewed; Nitrate Urine Negative (Negative); Non Pathogenic Casts 0-2; Protein Urine Negative (Negative); RBC Urine 0-2 /hpf (0-2); Specific Grav Ur 1.019 (1.001-1.035); Squamous Epithelial Cell Urine None Seen /hpf (Few); Urobilinogen Urine 0.2 mg/dL (<2.0); WBC Urine 0-5 /hpf (0-3)
[2024-11-21 10:36] LABS: Alanine Aminotransferase 22 U/L (6-35); Albumin Level 4.3 g/dL (3.5-5.1); Alkaline Phosphatase 76 U/L (38-126); Anion Gap 11 mmol/L (4-12); Aspartate Amino Transferase 31 U/L (14-36); Bilirubin,Total 0.4 mg/dL (0.2-1.3); Blood Urea Nitrogen 17 mg/dL (7-17); Calcium 9.3 mg/dL (8.4-10.2); Carbon Dioxide 31 mmol/L (22-30); Chloride 101 mmol/L (98-107); Cholesterol 138 mg/dL (0-200); Estimated Glomerular Filt Rate 55; Glucose 129 mg/dL (65-110); HDL Direct 51 mg/dL; Potassium 3.5 mmol/L (3.4-5.0); Sodium 143 mmol/L (137-145); Total Protein 7.8 g/dL (6.3-8.2); Triglycerides 128 mg/dL (<150)
[2024-11-21 10:41] LABS: Hemoglobin A1C 5.6 % (<5.7)
[2024-11-21 10:47] LABS: LDL Cholesterol Direct 51 mg/dL
== END 2024-11-21 09:33 | disposition home or self-care (01) ==
PROVIDERS: PCP Family Medicine; Visit Provider Physician Assistant Medical
DX: I10 Essential (primary) hypertension (principal); E78.00 Pure hypercholesterolemia, unspecified; F33.3 Major depressive disorder, recurrent, severe with psychotic symptoms; F41.1 Generalized anxiety disorder; R73.01 Impaired fasting glucose
CPT/HCPCS: 36415; 80053; 80061; 81001; 83036; 84443; 85027

== ENCOUNTER 2025-01-12 08:40 | Outpatient (CLI) | payer MEDICARE, OTHER, SELFPAY ==
--- OUTSIDE RECORDS SUMMARY | 2025-01-12 08:45 | XMS_ITS | Clinical Summary ---
Author Organization [facility] [address] [place] Address [address] [place] [address] Care Team Providers Care Bookbinding Machine Operator Name Role Phone Og Torres MD Primary Care Provider Allergies Active Allergy Reactions Criticality Noted Date Comments Ampicillin Itching Low 01/19/2019 Hydrocodone Hallucinations Medium Medications RABEprazole DR (ACIPHEX) 20 mg EC tablet Take 20 mg by mouth business liaison officer before breakfast Active rOPINIRole (REQUIP) 2 mg [...] (01/03/2019): Added automatically from request for surgery [id number] Rotator cuff arthropathy, right 08/31/2018 Overview (08/31/2018): Added automatically from request for surgery [id number] Biceps tendinitis on right 08/31/2018 Overview (08/31/2018): Added automatically from request for surgery [id number] Surgical History Surgery Date Site/Laterality Comments OTHER [...] on file 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 Gender Identity Not on file Sexual Orientation [...] on file Medical Devices Implanted Type Area 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 Marketing Coordinator Device Identifier Shelf Expiration Date Model / Serial / Lot Exactech 320-15-05 Equinoxe Lock Reverse Shoulder Glenosphere Screw Bone - [id number] - [id number] Implanted:Qty: 1 on 09/21/2018 by Mateo Calle MD at [facility] Right: Shoulder Exactech 08/12/2023 320-15-05 / [id number] / Exactech 320-15- Equinoxe Reverse Shoulder Standard Plate Glenoid - [id number] - [id number] Implanted:Qty: 1 on 09/21/2018 by Mateo Calle MD at [facility] Right: Shoulder [employer] 08/11/2028 320-15- / [id number] / Exactech 320-20-00 Reverse Torque Define Shoulder Kit Screw - [id number] - [id number] Implanted:Qty: 1 on 09/21/2018 by Mateo Calle MD at [facility] Right: Shoulder [employer]ech 08/18/2023 320-20-00 / [id number] / Equinoxe Humeral Stem Primary, Press-Fit Implanted:Qty: 1 on 09/21/2018 by Mateo Calle MD at [facility] Right: Shoulder Exactech [id number] 08/11/2028 300-01-12 / [id number] / Exactech 320-01-38 38mm Glenosphere Reverse Shoulder Component Glenoid - [id number] - [id number] Implanted:Qty: 1 on 09/21/2018 by Mateo Calle MD at [facility] Right: Shoulder [employer]ech 08/11/2028 320--38 / [id number] / Exactech 320-20-42 Equinoxe 4.5mm 42mm Kit Compression Lock Cap Reverse Shoulder - [id number] - [id number] Implanted:Qty: 1 on 09/21/2018 by Mateo Calle MD at [facility] Right: Shoulder [employer] 07/27/2022 320-20-42 / [id number] / Exactech 320-20-26 Equinoxe 4.5mm 26mm Kit Compression Lock Cap Reverse Shoulder - [id number] - [id number] Implanted:Qty: 1 on 09/21/2018 by Mateo Calle MD at [facility] Right: Shoulder [employer]ech 08/01/2023 320-20-26 / [id number] / Exactech 320-10-00 Equinoxe Reverse Shoulder +0mm Tray Humeral Adapter - [id number] - [id number] Implanted:Qty: 1 on 09/21/2018 by Mateo Calle MD at [facility] Right: Shoulder Ex[employer]ech 05/30/2028 320-10-00 / [id number] / Exactech 320-38-00 Equinoxe 38mm Reverse Shoulder +0mm Liner Humeral - [id number] - [id number] Implanted:Qty: 1 on 09/21/2018 by Mateo Calle MD at [facility] Right: Shoulder Ex[employer]ech 08/05/2023 320-38-00 / [id number] / [employer] 5536-B-400 Triathlon Coated Knee 4 Baseplate Tibial Tritanium Sterile - [id number] Implanted:Qty: 1 on 01/19/2019 by Mateo Calle MD at [facility] Right: Knee [employer] 10/08/2023 5536-B-40 0 / / [id number] [employer] 5517-F-402 Triathlon Cruciate Retain Bead Knee Right 4 Component Femoral Pa - [id number] Implanted:Qty: 1 on 01/19/2019 by Mateo Calle MD at [facility] Right: Knee [employer] 08/05/2021 5517-F-40 2 / / [id number] [employer] 5531-G-409 Triathlon 9mm Cruciate Substitute Knee 4 Insert Tibial X3 - [id number] Implanted:Qty: 1 on 01/19/2019 by Mateo Calle MD at [facility] Right: Knee [employer] 04/19/2023 5531-G-40 9 / [id number] Insurance [place] [address] [employer] MEDICARE PPO Advance Directives For more information, please contact: [phone] * Full Code (Latest Code Status on File) Date Activated Date Inactivated Comments 01/19/2019 12:02 PM 01/20/2019 9:21 PM * Full Code Date Activated Date Inactivated Comments 09/21/2018 7:22 PM 09/22/2018 6:16 PM Care Teams Bookbinding Machine Operator Relationship Specialty Start Date End Date Og Torres MD [address] [facility] [address] [place] [address] PCP - General Family Medicine 08/20/18
--- OUTSIDE RECORDS SUMMARY | 2025-01-12 08:45 | XMS_ITS | Referral Summary ---
Author Organization [facility] [address] [place] Address [address] [place] [address] Care Team Providers Care Ballistics Professor Name Role Phone Og Torres MD Primary Care Provider Allergies Active Allergy Reactions Criticality Noted Date Comments Ampicillin Itching Low 01/19/2019 Hydrocodone Hallucinations Medium Medications RABEprazole DR (ACIPHEX) 20 mg EC tablet Take 20 mg by mouth spout worker before breakfast Active rOPINIRole (REQUIP) 2 mg [...] (01/03/2019): Added automatically from request for surgery [id number] Rotator cuff arthropathy, right 08/31/2018 Overview (08/31/2018): Added automatically from request for surgery [id number] Biceps tendinitis on right 08/31/2018 Overview (08/31/2018): Added automatically from request for surgery [id number] Social History Tobacco Use Types Packs/Day Years Used Date Smoking Tobacco: Never Smokeless Tobacco: Never Alcohol Use Standard Drinks/Week Comments No 0 (1 standard drink = 0.6 oz pur e alcohol) PHQ-2 Answer Date Recorded PHQ-2 Score 2 02/05/2019 Comments No Sex and Gender Information Value Date Recorded Sex Assigned at Not on file 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 Gender Identity Not on file Sexual Orientation [...] on file Medical Devices Implanted Type Area Inspector [employer] Device Identifier Shelf Expiration Date Model / Serial / Lot ExactBioKier 320-15-05 Equinoxe Lock Reverse Shoulder Glenosphere Screw Bone - [id number] - [id number] Implanted:Qty: 1 on 09/21/2018 by Mateo Calle MD at [facility] Right: Shoulder [employer] 08/12/2023 320-15-05 / [id number] / [employer]ech 320-15- Equinoxe Reverse Shoulder Standard Plate Glenoid - [id number] - [id number] Implanted:Qty: 1 on 09/21/2018 by Mateo Calle MD at [facility] Right: Shoulder [employer] 08/11/2028 320-15- / [id number] / Exactech 320-20-00 Reverse Torque Define Shoulder Kit Screw - [id number] - [id number] Implanted:Qty: 1 on 09/21/2018 by Mateo Calle MD at [facility] Right: Shoulder [employer] 08/18/2023 320-20-00 / [id number] / Equinoxe Humeral Stem Primary, Press-Fit Implanted:Qty: 1 on 09/21/2018 by Mateo Calle MD at [facility] Right: Shoulder [employer] [id number] 08/11/2028 300-01-12 / [id number] / Ex[employer]ech 320-01-38 38mm Glenosphere Reverse Shoulder Component Glenoid - [id number] - [id number] Implanted:Qty: 1 on 09/21/2018 by Mateo Calle MD at [facility] Right: Shoulder [employer] 08/11/2028 320-01-38 / [id number] / [employer]ech 320-20-42 Equinoxe 4.5mm 42mm Kit Compression Lock Cap Reverse Shoulder - [id number] - [id number] Implanted:Qty: 1 on 09/21/2018 by Mateo Calle MD at [facility] Right: Shoulder [employer] 07/27/2022 320-20-42 / [id number] / [employer] 320-20-26 Equinoxe 4.5mm 26mm Kit Compression Lock Cap Reverse Shoulder - [id number] - [id number] Implanted:Qty: 1 on 09/21/2018 by Mateo Calle MD at [facility] Right: Shoulder [employer] 08/01/2023 320-20-26 / [id number] / [employer]ech 320-10-00 Equinoxe Reverse Shoulder +0mm Tray Humeral Adapter - [id number] - [id number] Implanted:Qty: 1 on 09/21/2018 by Mateo Calle MD at [facility] Right: Shoulder [employer] 05/30/2028 320-10-00 / [id number] / Exactech 320-38-00 Equinoxe 38mm Reverse Shoulder +0mm Liner Humeral - [id number] - [id number] Implanted:Qty: 1 on 09/21/2018 by Mateo Calle MD at [facility] Right: Shoulder [employer] 08/05/2023 320-38-00 / [id number] / [employer] 5536-B-400 Triathlon Coated Knee 4 Baseplate Tibial Tritanium Sterile - [id number] Implanted:Qty: 1 on 01/19/2019 by Mateo Calle MD at [facility] Right: Knee [employer] 10/08/2023 5536-B-40 0 / / [id number] [employer] 5517-F-402 Triathlon Cruciate Retain Bead Knee Right 4 Component Femoral Pa - [id number] Implanted:Qty: 1 on 01/19/2019 by Mateo Calle MD at [facility] Right: Knee [employer] 08/05/2021 5517-F-40 2 / / [id number] [employer] 5531-G-409 Triathlon 9mm Cruciate Substitute Knee 4 Insert Tibial X3 - [id number] Implanted:Qty: 1 on 01/19/2019 by Mateo Calle MD at [facility] Right: Knee [employer] 04/19/2023 5531-G-40 9 / / [id number] Insurance [place] [address] [employer] MEDIC[employer] PPO Advance Directives For more information, please contact: [phone] * Full Code (Latest Code Status on File) Date Activated Date Inactivated Comments 01/19/2019 12:02 PM 01/20/2019 9:21 PM * Full Code Date Activated Date Inactivated Comments 09/21/2018 7:22 PM 09/22/2018 6:16 PM Care Teams Ballistics Professor Relationship Specialty Start Date End Date Og Torres MD [address] [facility] [address] [place] [address] PCP - General Family Medicine 08/20/18
--- OUTSIDE RECORDS SUMMARY | 2025-01-12 08:45 | XMS_ITS | Clinical Summary ---
Author Organization [facility] Address [address] [facility] [address] [place] [address] Phone Care Team Providers Care Technical Cable Jointer Name Role Phone Og Torres MD Primary Care Provider Social History Tobacco Use Types Packs/Day Years Used Date Smoking Tobacco: Never Assessed Comments Unknown Sex and Gender Information Value Date Recorded Sex Assigned at Not on file Legal Sex Female 9:53 AM CDT Gender Identity Not on file Sexual Orientation Not on file Plan of Treatment Health Maintenance Due Date Last Done Comments Hepatitis C Virus (HCV) Screening 1950 TdaP Immunization 1950 Cologuard 1997 Immunochemical Fecal Occult Blood 1997 Pneumococcal Immunization (5 0+ years) (1 of 1 - PCV) 2002 Zoster Immunization (1 of 2) 2002 Colonoscopy 12/30/2023 12/29/2018 Colorectal Cancer Screening 12/30/2023 SARS-COV-2 Immunization ( season) 2024 Influenza Immunization (#1) 2025 Respiratory Syncytial Virus (RSV) Immunization (Adult) (1 - 1-dose 75+ series) 10/26/2027 Hepatitis B Immunization Aged Out No longer eligible based on patient's age to complete this topic Human Papillomavirus (HPV) Immunization Aged Out No longer eligible b ased on patient's age to complete this topic [...] to Health Maintenance Insurance MEDICARE C [facility] Care Teams Technical Cable Jointer Relationship Specialty Start Date End Date Og Torres MD [address] [place] [address] PCP - General Family Medicine 11/12/18
[2025-01-12 09:56] LABS: Anion Gap 5 mmol/L (4-12); Blood Urea Nitrogen 14 mg/dL (7-17); Calcium 9.0 mg/dL (8.4-10.2); Carbon Dioxide 31 mmol/L (22-30); Chloride 101 mmol/L (98-107); Estimated Glomerular Filt Rate > 60; Glucose 120 mg/dL (65-110); Potassium 3.8 mmol/L (3.4-5.0); Sodium 137 mmol/L (137-145)
== END 2025-01-12 08:41 | disposition home or self-care (01) ==
LOC: ANHLAB 08:41
PROVIDERS: PCP Family Medicine; Visit Provider Physician Assistant Medical
DX: R79.89 Other specified abnormal findings of blood chemistry (principal)
CPT/HCPCS: 36415; 80048